=== PATIENT | male | born 1960 | race Caucasian/White ===

== ENCOUNTER 2019-09-02 09:02 | Outpatient (CLI) | payer OTHER, SELFPAY ==
--- NOTE | 2019-09-02 09:21 | CT_ITS ---
WS: [id number] CTA THORACIC AORTA WITH AND WITHOUT CONTRAST HISTORY: THORACIC AORTIC ANEURYSM TECHNIQUE: CT imaging of the thorax is performed with and without contrast. After noncontrast imaging is performed, CT angiogram is performed during injection of Omnipaque 350; 95 mL IV.. Sagittal and c oronal reconstructions, sagittal and coronal MIP imaging is submitted. All CT scans at [facility] use at least one of these dose optimization techniques: automated exposure control; mA and/o r kV adjustment per patient size (includes targeted exams where dose is matched to clinical indicatio n); or iterative reconstruction. DLP: 1426.15 mGy-cm. COMPARISON: 04/06/2018 Very slight dilatation of the descending thoracic aorta at the level of the regina. Maximum diameter 3.9 cm. No increase in size or progression since the prior study. Ascending aorta diameter is 3.9 cm. No significant atherosclerosis. There is no dissection. Normal size pulmonary artery. Great vessels arise normally from the arch. There are a few scattered granulomata throughout the lungs. No suspicious mass or nodule. Mild depend ent changes posteriorly. No pneumonia. Mildly prominent RIGHT hilar lymph node 11 mm. Overall the lym ph node burden has decreased since 04/06/2018. Mild enlargement of the cardiac chambers without pericar dial effusion. No hiatal hernia. Cholelithiasis without acute cholecystitis. No osteoblastic or osteolytic bone disease. CT/CT angio chest [id number] IMPRESSION: 1. Minimal dilatation of the descending thoracic aorta measures 3.9 cm and sta ble since 04/06/2018. 2. Improvement in the mediastinal/hilar adenopathy since 04/06/2018. 3. Cholelithiasis without acute cholecystitis.
[2019-09-02] MEDS: iohexol 350 mg/mL 100 mL Btl IV (10:31)
== END 2019-09-02 09:03 | disposition home or self-care (01) ==
LOC: RADWPI 09:14
PROVIDERS: Family Provider Family Medicine; PCP Family Medicine; Referring Provider Family Medicine; Visit Provider Surgery
DX: I71.2 Thoracic aortic aneurysm, without rupture (principal); K80.20 Calculus of gallbladder without cholecystitis without obstruction
CPT/HCPCS: 71275; Q9967

== ENCOUNTER → 2021-12-06 11:53 | Outpatient (BNVA) | payer MEDICARE, SELFPAY | PROVIDERS: Family Provider Family Medicine; PCP Family Medicine; Visit Provider Family Medicine | DX: K21.9 Gastro-esophageal reflux disease without esophagitis (principal); F41.1 Generalized anxiety disorder; F41.0 Panic disorder [episodic paroxysmal anxiety]; I10 Essential (primary) hypertension; R06.00 Dyspnea, unspecified; I71.2 Thoracic aortic aneurysm, without rupture; I49.9 Cardiac arrhythmia, unspecified; Z12.5 Encounter for screening for malignant neoplasm of prostate | CPT/HCPCS: 80053; 80061; 84153; 85025; 86140 ==

== ENCOUNTER → 2021-12-10 12:51 | Outpatient (BNVA) | payer MEDICARE, SELFPAY | PROVIDERS: Family Provider Family Medicine; PCP Family Medicine; Visit Provider Nurse Practitioner Family | DX: I10 Essential (primary) hypertension (principal); I71.2 Thoracic aortic aneurysm, without rupture | CPT/HCPCS: 99214 ==

== ENCOUNTER 2021-12-19 14:53 | Outpatient (CLI) | payer MEDICARE, SELFPAY ==
--- NOTE | 2021-12-19 15:00 | USCV_ITS ---
Oswaldo Medina Age: 61 Gender: M : 1960 Exam Date: 12/19/2021 15:08 Ordering Phys: Debo Dunham Technologist: CONNIE Exam Location: [facility] [place] Indication: Dyspnea on exertion BP: / HR: 62 Rhythm: Sinus Technical Quality: Adequate MEASUREMENTS (Male / Female) Normal Values 2D ECHO LV Diastolic Diameter PLAX 3.7 cm 4.2 - 5.9 / 3.9 - 5.3 cm LV Systolic Diameter PLAX 2.4 cm IVS Diastolic Thickness 1.1 cm 0.6 - 1.0 / 0.6 - 0.9 cm IVS Systolic Thickness 1.2 cm LVPW Diastolic Thickness 1.1 cm 0.6 - 1.0 / 0.6 - 0.9 cm LVPW Systolic Thickness 1.5 cm LVOT Diameter 2.1 cm LV Ejection Fraction 2D Teich 65.6 % LV Ejection Fraction MOD 2C 70.1 % LV Ejection Fraction 2C AL 70.0 % LA Diameter 2.9 cm LA Width 2.8 cm LA Height 3.1 cm RA Width 4.2 cm RA Height 4.6 cm Aorta at Sinotubular Diameter 3.3 cm M-MODE Aortic Annulus Diameter 3.0 cm LA Ao Ratio MM 1.1 MV E Point Septal Separation 0.2 cm DOPPLER AV Peak Velocity 110.0 cm/s LVOT Peak Velocity 100.0 cm/s AV Area Cont Eq vti 3.2 cm squared AV Area Cont Eq pk 3.3 cm squared MV Peak Velocity 88.0 cm/s MV Area PHT 2.7 cm squared Mitral E to A Ratio 0.9 MV E' Velocity 41.5 cm/s Mitral E to LV E' Lateral Ratio 6.4 TR Peak Velocity 235.5 cm/s TR Peak Gradient 22.2 mmHg PV Peak Velocity 108.0 cm/s RV Acceleration Time 0.1 s RV Ejection Time 0.3 s RV AcT/ET 0.2 FINDINGS Left Ventricle Normal left ventricular size, systolic function and wall thickness, with no regional wall motion abnormalities. Left ventricular ejection fraction is estimated at 70 %. Normal diastolic function. Right Ventricle Normal right ventricular size and systolic function. Right ventricular systolic pressure 22 mmHg. Right Atrium Normal right atrial size. Left Atrium Normal left atrial size. Mitral Valve Structurally normal mitral valve. Trace mitral valve regurgitation. Aortic Valve Structurally normal trileaflet aortic valve. No aortic valve stenosis. No aortic valve regurgitation. Tricuspid Valve Structurally normal tricuspid valve. No tricuspid valve stenosis. Trace to mild tricuspid valve regurgitation. Pulmonic Valve Structurally normal pulmonic valve. No pulmonary valve stenosis. No pulmonary valve regurgitation. Pericardium No pericardial effusion. Aorta Normal-sized aortic root. Ascending aorta measured anteroposteriorly at 37 mm. Normal-sized inferior vena cava. CONCLUSIONS 1. Normal left ventricular size, systolic function and wall thickness, with no regional wall motion abnormalities. Left ventricular ejection fraction is estimated at 70 %. Normal diastolic function. 2. Normal right ventricular size and systolic function. 3. Normal pulmonary artery pressure. 4. Trace to mild tricuspid valve regurgitation. 5. When compared to previous study dated 06/05/2018, tricuspid valve regurgitation seems to have decreased. Chasity Hanson MD (Electronically Signed) Final Date: 21 December 2021 14:03 S
== END 2021-12-19 14:54 | disposition home or self-care (01) ==
LOC: RAD 14:58
PROVIDERS: Family Provider Family Medicine; PCP Family Medicine; Visit Provider Nurse Practitioner Family
DX: R06.09 Other forms of dyspnea (principal); I07.1 Rheumatic tricuspid insufficiency
CPT/HCPCS: 93306

== ENCOUNTER → 2022-02-26 11:16 | Outpatient (BNVA) | payer MEDICARE, SELFPAY | PROVIDERS: Family Provider Family Medicine; PCP Family Medicine; Visit Provider Family Medicine | DX: R53.1 Weakness (principal); R53.82 Chronic fatigue, unspecified; R68.89 Other general symptoms and signs; W57.XXXA Bitten or stung by nonvenomous insect and other nonvenomous arthropods, initial encounter | CPT/HCPCS: 84439; 84443; 85651; 86038; 86140; 86431; 86618; 86666; 86757 ==

== ENCOUNTER 2022-04-16 14:57 | Emergency (ER) | payer MEDICARE, SELFPAY ==
[2022-04-16 15:03] VITALS: BP 158/92; PULSE 63; RESP 16; TEMP 36.3; O2SAT 97; BMI 27.1
--- NOTE | 2022-04-16 15:20 | ECG_ITS ---
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 Measurements Intervals [place] Rate: 61 P: 67 [place]: 219 QRS: -17 QRSD: 94 T: 72 QT: 415 QTc: 419 Interpretive Statements SINUS RHYTHM WITH FIRST DEGREE AV BLOCK Compared to ECG 04/06/2018 19:19:00 First degree AV block now present Ventricular premature complex(es) no longer present Electronically Signed On 04-16-2022 17:51:43 CDT by Chasity Hanson M.D. [id number]
--- NOTE | 2022-04-16 15:20 | XRR_ITS ---
PROCEDURE INFORMATION: Exam: XR Chest Exam date and time: 04/16/2022 5:31 PM Age: 62 years old Clinical indication: Chest wall pain; Additional info: Chest pain TECHNIQUE: Imaging protocol: Radiologic exam of the chest. Views: 1 view. COMPARISON: CT angio chest [id number] 09/02/2019 10:44 AM FINDINGS: Lungs: Unremarkable. No consolidation. Pleural spaces: Unremarkable. No pleural effusion. No pneumothorax. Heart/Mediastinum: Unremarkable. No cardiomegaly. Bones/joints: No acute abnormality. XR/XR chest 1V portable [id number] IMPRESSION: No acute findings.
[2022-04-16 16:34] LABS: Basophils # 0.1 10^3/uL (0.0-0.1); Basophils % 0.7 %; Eosinophils # 0.1 10^3/uL (0.0-0.8); Eosinophils % 1.2 %; Hematocrit 51.2 % (42.0-52.0); Hemoglobin 16.9 g/dL (11.7-16.6); Lymphocytes # 1.2 10^3/uL (0.8-4.8); Lymphocytes % 16.9 %; Mean Corpuscular Hemoglobin 29.4 pg (28.0-34.0); Mean Corpuscular Volume 89.2 fl (80-94); Mean Platelet Volume 10.1 fL (7.4-10.4); Monocytes # 0.5 10^3/uL (0.2-0.9); Monocytes % 7.1 %; Neutrophils # 5.37 10^3/uL (1.8-7.7); Neutrophils % 73.7 %; Nucleated Red Blood Cells % 0 %; Platelet Count 182 10^3/cmm (130-400); Red Blood Count 5.74 10^6/uL (4.1-5.3); Red Cell Distribution Width 12.5 % (12.1-15.1); White Blood Count 7.3 10^3/uL (4.0-10.0)
[2022-04-16 17:00] LABS: Troponin(5th) Baseline 7 ng/L (0-15)
[2022-04-16 17:01] LABS: Alanine Aminotransferase 33 U/L (0-41); Albumin Level 4.5 g/dL (3.5-5.2); Alkaline Phosphatase 106 U/L (40-130); Anion Gap 13.7 (5-19); Aspartate Amino Transferase 20 U/L (0-40); Blood Urea Nitrogen 10 mg/dL (8-23); Calcium 9.4 mg/dL (8.5-10.5); Carbon Dioxide 29 mmol/L (22-29); Chloride 104 mmol/L (98-107); Globulin 2.5 g/dL (1.3-4.6); Glomerular Filtration Rate 61.3 mL/min (90-130); Glucose 99 mg/dL (65-115); Osmolality Calculated 293 mOsm/kg (285-295); Potassium 4.7 mmol/L (3.5-5.1); Sodium 142 mmol/L (136-145); Total Bilirubin 0.6 mg/dL (0.15-1.2)
[2022-04-16 17:10] VITALS: BP 151/83; PULSE 60; RESP 16; O2SAT 97
--- NOTE | 2022-04-16 17:10 | PC.NURSE ---
WHILE IN LOBBY PT IS IN NAD. PT IS AGITATED STATING, IF THIS IS FINE I'M JUST GONNALEAVE I'VE WAITED HERE LONG ENOUGH .
--- NOTE | 2022-04-16 17:40 | ECG_ITS ---
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 Measurements Intervals [place] Rate: 56 P: 49 [place]: 220 QRS: -32 QRSD: 87 T: 56 QT: 417 QTc: 403 Interpretive Statements SINUS BRADYCARDIA WITH FIRST DEGREE AV BLOCK LEFT AXIS DEVIATION [QRS AXIS < -30] Compared to ECG 04/16/2022 15:02:19 Left-axis deviation now present Sinus rhythm no longer present Electronically Signed On 04-16-2022 18:08:39 CDT by Chasity Hanson M.D. [id number]
--- NOTE | 2022-04-16 18:22 | W.ED.CHESTPA ---
HPI - Chest Pain General: Chief Complaint: Chest Pain Stated Complaint: chest pain, SOB Time Seen by Provider: 04/16/22 18:11 Source: patient Mode of arrival: ambulatory Limitations: no limitations History of Present Illness: 62-year-old male who states that this morning he was doing work outside started having some chest pain around noon states it was in his left arm states he had some dyspnea especially deep inspiration. He states the pain lasted roughly 45 minutes and then just resolved spontaneously states he feels back to normal he had no pain no shortness of breath denies any cough denies any fever he has no history of coronary artery disease. Associated symptoms: Reports dyspnea; Deny abdominal pain, fever(s), nausea or vomiting Review of Systems Const: Denies: fever(s), chills, body aches or change in appetite Eyes: Denies: blurry vision or eye discomfort ENMT: Denies: throat pain or dental pain Card: Reports: chest pain Resp: Reports: dyspnea GI: Denies: abdominal pain, nausea, vomiting or diarrhea : Denies: dysuria Musc: Denies: neck pain or back pain Skin/Breast: Denies: rash Neuro: Denies: headache(s) Psych: Denies: depression Ray/Lymph: Denies: easy bruising All/Imm: Denies: urticaria PFSH ED PFSH: Medical History Anxiety Atypical chest pain Chronic back pain Chronic neck pain Hypertension Osteoarthritis PUD (peptic ulcer disease) PVC (premature ventricular contraction) Supraventricular arrhythmia Thoracic aortic aneurysm Surgical History H/O neck surgery Family History Brother CAD (coronary artery disease) Cancer Sister Cancer Mother Cancer Father Cancer Grandmother Cancer Grandfather Cancer Family/Other Diabetes Stroke Parkinson disease Other Family history of premature coronary artery disease Denies family history of Clotting disorder Dementia Chronic kidney disease (CKD) Suicide Anesthesia complication Bleeding disorder Lung disease Social History Smoking and tobacco status: never smoked Alcohol intake: never History of recent travel: No Physical Exam Const: COMMON NORMALS: no acute distress, patient oriented x3 and healthy appearing HENMT: COMMON NORMALS: normocephalic and atraumatic HEAD & SCALP: normocephalic and atraumatic Eye: COMMON NORMALS: Equal, round and reactive pupils present and EOMs intact bilaterally PUPIL: Yes Equal, round and reactive pupils present Neck/C-Spine: COMMON NORMALS: full ROM and supple Chest: COMMONS NORMALS: normal inspection of the chest and normal palpation of entire chest wall Resp: COMMON NORMALS: normal respiratory effort, No retractions, No use of accessory muscles and clear to auscultation bilaterally AUSCULTATION: clear to auscultation bilaterally Cardio: COMMON NORMALS: regular rate, regular rhythm and No murmurs present (Cardio) RATE: regular rate RHYTHM: regular rhythm GI: COMMON NORMALS: Normal to inspection, nondistended, normoactive bowel sounds present, Soft to palpation, non-tender and no masses PALPATION: Yes Soft to palpation Extremity: COMMON NORMALS: normal to inspection and full ROM Neuro: COMMON NORMALS: patient oriented x3, moves all extremities and no focal motor deficits Psych: COMMON NORMALS: mental status grossly normal, Normal thought process present and cooperative THOUGHT PROCESS: Normal thought process present Skin: COMMON NORMALS: no rashes or lesions noted and no wounds GENERAL SKIN EXAM: no rashes or lesions noted Course Vital Signs: Vital signs: Vital Signs Temperature 97.4 F L 04/16/22 15:03 Pulse Rate 59 L 04/16/22 18:31 Respiratory Rate 15 04/16/22 18:31 Blood Pressure 120/97 04/16/22 18:31 Pulse Oximetry 974 H 04/16/22 18:31 Oxygen Delivery Me thod 04/16/22 18:31 MDM - Chest Pain Medical Decision Making Patient presents for chest pain has been chest pain-free for hours D-dimer troponins here are negative he has no signs of acute coronary syndrome he is stable for discharge he is to follow-up with PCP and return if worsening he understands agrees to plan. Lab Data : 04/16/22 16:22 04/16/22 16:16 Radiology Impressions Chest X-Ray 04/16/22 15:20 IMPRESSION: No acute findings. Laboratory Results WBC 7.3 10^3/uL (4.0-10.0) 04/16/22 16:22 RBC 5.74 10^6/uL (4.1-5.3) H 04/16/22 16: Hgb 16.9 g/dL (11.7-16.6) H 04/16/22 16: Hct 51.2 % (42.0-52.0) 04/16/22 16: MCV 89.2 fl (80-94) 04/16/22 16: MCH 29.4 pg (28.0-34.0) 04/16/22: MCHC 33.0 g/dL (30.0-36.0) 04/16/22: RDW 12.5 % (12.1-15.1) 04/16/22: Plt Count 182 10^3/cmm (130-400) 04/16/22: MPV 10.1 fL (7.4-10.4) 04/16/22: Neut % (Auto) 73.7 % 04/16/22: Lymph % (Auto) 16.9 % 04/16/22: Cameron % (Auto) 7.1 % 04/16/22: Eos % (Auto) 1.2 % 04/16/22: Baso % (Auto) 0.7 % 04/16/22: Neut # (Auto) 5.37 10^3/uL (1.8-7.7) 04/16/22: Lymph # (Auto) 1.2 10^3/uL (0.8-4.8) 04/16/22: Cameron # (Auto) 0.5 10^3/uL (0.2-0.9) 04/16/22: Eos # (Auto) 0.1 10^3/uL (0.0-0.8) 04/16/22: Baso # (Auto) 0.1 10^3/uL (0.0-0.1) 04/16/22: Nucleated RBC % (auto) 0 % 04/16/22: Nucleated RBCs # 0.0 /100WBC 04/16/22 16: D-Dimer 0.60 ug/mIFEU (0-0.59) H 04/16/22 16:22 Sodium 142 mmol/L (136-145) 04/16/22 16:16 Potassium 4.7 mmol/L (3.5-5.1) 04/16/22 16:16 Chloride 104 mmol/L (98-107) 04/16/22 16:16 Carbon Dioxide 29 mmol/L (22-29) 04/16/22 16:16 Anion Gap 13.7 (5-19) 04/16/22 16:16 BUN 10 mg/dL (8-23) 04/16/22 16:16 Creatinine 1.2 mg/dL (0.7-1.2) 04/16/22 16:16 GFR Calculation 61.3 mL/min (90-130) L 04/16/22 16:16 Glucose 99 mg/dL (65-115) 04/16/22 16:16 Calculated Osmolality 293 mOsm/kg (285-295) 04/16/22 16:16 Calcium 9.4 mg/dL (8.5-10.5) 04/16/22 16:16 Total Bilirubin 0.6 mg/dL (0.15-1.2) 04/16/22 16:16 AST 20 U/L (0-40) 04/16/22 16:16 ALT 33 U/L (0-41) 04/16/22 16:16 Alkaline Phosphatase 106 U/L (40-130) 04/16/22 16:16 Troponin T Baseline 7 ng/L (0-15) 04/16/22 16:16 Troponin T 120 Minute 7.23 ng/L (0-15) 04/16/22 19:00 Total Protein 7.0 g/dL (6.6-8.7) 04/16/22 16:16 Albumin 4.5 g/dL (3.5-5.2) 04/16/22 16:16 Globulin 2.5 g/dL (1.3-4.6) 04/16/22 16:16 Discharge Plan Discharge Patient Disposition: Home Clinical Impression: Chest pain Condition: Stable Prescriptions: No Action triamcinolone acetonide 0.1 % ointment 1 applic topical TID Excedrin Migraine 250-250-65 mg tablet 1 tab PO Q6H PRN alprazolam 1 mg tablet 1 mg PO BID PRN (Reason: anxiety, insomnia) Qty: 60 2RF amlodipine 2.5 mg tablet 2.5 mg PO DAILY 90 Days Qty: 90 1RF metoprolol succinate 50 mg tablet extended release 24 hr 50 mg PO DAILY 90 Days Qty: 90 1RF omeprazole 20 mg capsule,delayed release(DR/EC) 20 mg PO DAILY 90 Days Qty: 90 1RF Discharge Orders: Discharge ED (Routine); Ordered 04/16/22 Ordered By: Dilshad Huizar Referrals: Everardo Guaman, [Primary Care Provider] - 1-3 days Discharge Diet: Advance as tolerated Discharge Activity: Resume usual activity Patient Instructions: Chest Pain (ED) Coding Level of Care Code ED Electrophysiology Nurse Practitioner for Abenag Fwd Exam Comprehensive
[2022-04-16 18:31] VITALS: BP 120/97; PULSE 59; RESP 15; O2SAT 974
[2022-04-16 19:54] LABS: Troponin 5 2HR 7.23 ng/L (0-15)
[2022-04-16 20:10] VITALS: BP 130/89; PULSE 61; RESP 18; O2SAT 96
[2022-04-16 21:08] LABS: Troponin 5 2HR Delta 0.23 ABS# (0-10)
== END 2022-04-16 20:11 | disposition home or self-care (01) ==
PROVIDERS: Physician Assistant; Emergency Provider Emergency Medicine; PCP Family Medicine
DX: R07.9 Chest pain, unspecified (principal); I10 Essential (primary) hypertension
CPT/HCPCS: 71045; 80053; 84484; 85025; 85378; 93005; 99285

== ENCOUNTER 2022-04-27 18:04 | Emergency (ER) | payer MEDICARE, SELFPAY ==
[2022-04-27 18:08] VITALS: BMI 27.1
--- NOTE | 2022-04-27 18:16 | ECG_ITS ---
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 Measurements Intervals [place] Rate: 68 P: -5 [place]: 223 QRS: 105 QRSD: 98 T: -6 QT: 387 QTc: 412 Interpretive Statements SINUS RHYTHM WITH FIRST DEGREE AV BLOCK RIGHT AXIS DEVIATION [QRS AXIS > 100] POSSIBLE RIGHT VENTRICULAR CONDUCTION DELAY [RSR (QR) IN V1/V2] ST ELEVATION, PROBABLY EARLY REPOLARIZATION [ST ELEVATION WITH NORMALLY INFLECTED T-WAVE] ABNORMAL QRS-T ANGLE [QRS-T AXIS DIFFERENCE > 60] INTERPRETATION BASED ON A DEFAULT AGE OF 40 YEARS Compared to ECG 04/16/2022 17:40:05 Right-axis deviation now present ST (T wave) deviation now present Sinus bradycardia no longer present Left-axis deviation no longer present Electronically Signed On 04-28-2022 8:22:57 CDT by Grey Love M.D. [id number] alda
--- NOTE | 2022-04-27 18:49 | W.ED.ARRPALP ---
HPI - Arrhythmia/Palpitations General: Chief Complaint: Arrhythmia/Palpitations Stated Complaint: back pain, Chest pains Time Seen by Provider: 04/27/22 18:20 Source: patient and family History of Present Illness: 63-year-old gentleman sent from urgent care. His main complaints are muscle spasms on the left side of his lower chest. He notes a quivering sensation this has been going on for 24 hours or so. He notes that they have happened in the past, and usually he can get them to go away by drinking water and moving around some. I believe there was some concern in urgent care, as the patient has a history of a thoracic aortic aneurysm. He does not complain of chest pain or significant shortness of breath. He does states that he is nauseated, and has been nauseated on and off since he had [place] spotted fever around 6 weeks ago MD complaint: palpitations Onset (ago): hour(s) Duration: constant Severity: mild Context: occurred during rest Arrhythmia history: other Associated symptoms: Reports nausea; Deny anxiety, cough, diaphoresis, muscle cramps, short of breath, syncope or vomiting Review of Systems Const: Denies: diaphoresis Eyes: Denies: change in vision ENMT: Denies: throat pain Card: Reports: palpitations; Denies: chest pain, irregular heart rhythm or syncope Resp: Denies: dyspnea, productive cough or non-productive cough GI: Reports: nausea; Denies: abdominal pain or vomiting Musc: Denies: muscle cramps Psych: Denies: anxiety PFSH ED PFSH: Medical History Anxiety Atypical chest pain Chronic back pain Chronic neck pain Hypertension Osteoarthritis PUD (peptic ulcer disease) PVC (premature ventricular contraction) Supraventricular arrhythmia Thoracic aortic aneurysm Surgical History H/O neck surgery Family History Brother CAD (coronary artery disease) Cancer Sister Cancer Mother Cancer Father Cancer Grandmother Cancer Grandfather Cancer Family/Other Diabetes Stroke Parkinson disease Other Family history of premature coronary artery disease Denies family history of Clotting disorder Dementia Chronic kidney disease (CKD) Suicide Anesthesia complication Bleeding disorder Lung disease Social History (Reviewed 04/27/22 @ 18:58 by MONSE Paiz Smoking and tobacco status: never smoked Alcohol intake: never History of recent travel: No Physical Exam Const: COMMON NORMALS: no acute distress GENERAL APPEARANCE: cooperative HENMT: COMMON NORMALS: normocephalic and atraumatic HEAD & SCALP: normocephalic and atraumatic Eye: COMMON NORMALS: Equal, round and reactive pupils present and EOMs intact bilaterally PUPIL: Yes Equal, round and reactive pupils present Neck/C-Spine: COMMON NORMALS: full ROM GENERAL: Yes trachea midline Chest: CHEST: Yes Symmetrical chest wall rise Resp: COMMON NORMALS: normal respiratory effort, No use of accessory muscles and clear to auscultation bilaterally AUSCULTATION: clear to auscultation bilaterally Cardio: COMMON NORMALS: regular rate and regular rhythm RATE: regular rate RHYTHM: regular rhythm GI: COMMON NORMALS: Normal to inspection, nondistended, normoactive bowel sounds present and Soft to palpation PALPATION: Yes Soft to palpation and Yes Tenderness to palpation present (GI) (Mild epigastric) Extremity: COMMON NORMALS: no pedal edema Course Vital Signs: Vital signs: Vital Signs Pulse Rate 71 04/27/22 21:55 Respiratory Rate 12 04/27/22 21:55 Blood Pressure 127/80 04/27/22 21:55 Pulse Oximetry 92 04/27/22 21:55 MDM - Arrhythmia/Palpitations Medical Decision Making 62-year-old male presenting with twitching in his abdomen/chest. His vital signs been normal. Pulse ox is 94% on room air. Heart rate is 62 blood pressure 127/80. He was feeling rather anxious. Midazolam helped both the twitching and the anxiety, as well as did IV fluid. His hemoglobin is 17.8. He has had high hemoglobins in the past. White blood cell count is 7. Chest x-ray is negative. EKG shows sinus rhythm with left axis and normal intervals. His rate is 60. He has an early repull pattern on EKG. First troponin is 12. 2-hour is 8.6. With improvement in his symptoms. He will be allowed home. Lab Data : 04/27/22 18:50 04/27/22 18:50 Radiology Impressions Chest X-Ray 04/27/22 18:53 IMPRESSION: No acute findings. Laboratory Results WBC 7.1 10^3/uL (4.0-10.0) 04/27/22 18:50 RBC 5.98 10^6/uL (4.1-5.3) H 04/27/22 18:50 Hgb 17.8 g/dL (11.7-16.6) H 04/27/22 18:50 Hct 52.9 % (42.0-52.0) H 04/27/22 18:50 MCV 88.5 fl (80-94) 04/27/22 18:50 MCH 29.8 pg (28.0-34.0) 04/27/22 18:50 MCHC 33.6 g/dL (30.0-36.0) 04/27/22 18:50 RDW 12.3 % (12.1-15.1) 04/27/22 18:50 Plt Count 210 10^3/cmm (130-400) 04/27/22 18:50 MPV 10.1 fL (7.4-10.4) 04/27/22 18:50 Neut % (Auto) 71.2 % 04/27/22 18:50 Lymph % (Auto) 18.7 % 04/27/22 18:50 [place] % (Auto) 8.7 % 04/27/22 18:50 Eos % (Auto) 0.7 % 04/27/22 18:50 Baso % (Auto) 0.4 % 04/27/22 18:50 Neut # (Auto) 5.05 10^3/uL (1.8-7.7) 04/27/22 18:50 Lymph # (Auto) 1.3 10^3/uL (0.8-4.8) 04/27/22 18:50 [place]cd[place] # (Auto) 0.6 10^3/uL (0.2-0.9) 04/27/22 18:50 Eos # (Auto) 0.1 10^3/uL (0.0-0.8) 04/27/22 18:50 Baso # (Auto) 0.0 10^3/uL (0.0-0.1) 04/27/22 18:50 Nucleated RBC % (auto) 0 % 04/27/22 18:50 Nucleated RBCs # 0.0 /100WBC 04/27/22 18:50 Sodium 140 mmol/L (136-145) 04/27/22 18:50 Potassium 4.5 mmol/L (3.5-5.1) 04/27/22 18:50 Chloride 101 mmol/L (98-107) 04/27/22 18:50 Carbon Dioxide 27 mmol/L (22-29) 04/27/22 18:50 Anion Gap 16.5 (5-19) 04/27/22 18:50 BUN 15 mg/dL (8-23) 04/27/22 18:50 Creatinine 1.1 mg/dL (0.7-1.2) 04/27/22 18:50 GFR Calculation 67.8 mL/min (90-130) L 04/27/22 18:50 Glucose 90 mg/dL (65-115) 04/27/22 18:50 Calculated Osmolality 290 mOsm/kg (285-295) 04/27/22 18:50 Calcium 9.4 mg/dL (8.5-10.5) 04/27/22 18:50 Magnesium 2.3 mg/dL (1.7-2.3) 04/27/22 18:50 Total Bilirubin 0.8 mg/dL (0.15-1.2) 04/27/22 18:50 AST 20 U/L (0-40) 04/27/22 18:50 ALT 37 U/L (0-41) 04/27/22 18:50 Alkaline Phosphatase 116 U/L (40-130) 04/27/22 18:50 Creatine Kinase 71 U/L (39-308) 04/27/22 18:50 Troponin T Baseline 12 ng/L (0-15) 04/27/22 18:50 Troponin T 120 Minute 8.58 ng/L (0-15) 04/27/22 20:54 Delta Troponin T -3.42 ABS# (0-10) L 04/27/22 20:54 Total Protein 7.0 g/dL (6.6-8.7) 04/27/22 18:50 Albumin 4.7 g/dL (3.5-5.2) 04/27/22 18:50 Globulin 2.3 g/dL (1.3-4.6) 04/27/22 18:50 Urine Color Yellow (Yellow) 04/27/22 19:41 Urine Appearance Clear (CLEAR) 04/27/22 19:41 Urine pH 6 (5-7) 04/27/22 19:41 Ur Specific [place] 1.010 (1.005-1.030) 04/27/22 19:41 Urine Protein Neg (Negative) 04/27/22 19:41 Urine Glucose (UA) Norm (Normal) 04/27/22 19:41 Urine Ketones Negative (Negative) 04/27/22 19:41 Urine Blood Neg (Negative) 04/27/22 19:41 Urine Nitrate Negative (Negative) 04/27/22 19:41 Urine Bilirubin Neg (Negative) 04/27/22 19:41 Urine Urobilinogen Norm mg/dL (Negative) 04/27/22 19:41 Ur Leukocyte Esterase Negative (Negative) 04/27/22 19:41 Discharge Plan Discharge Patient Disposition: Home Clinical Impression: Atypical chest pain, Generalized anxiety disorder with panic attacks Condition: Stable Prescriptions: No Action triamcinolone acetonide 0.1 % ointment 1 applic topical TID Excedrin Migraine 250-250-65 mg tablet 1 tab PO Q6H PRN alprazolam 1 mg tablet 1 mg PO BID PRN (Reason: anxiety, insomnia) Qty: 60 2RF amlodipine 2.5 mg tablet 2.5 mg PO DAILY 90 Days Qty: 90 1RF metoprolol succinate 50 mg tablet extended release 24 hr 50 mg PO DAILY 90 Days Qty: 90 1RF omeprazole 20 mg capsule,delayed release(DR/EC) 20 mg PO DAILY 90 Days Qty: 90 1RF Discharge Orders: Discharge ED (Routine); Ordered 04/27/22 Ordered By: Lance Alonzo Referrals: Everardo Guaman DO [Primary Care Provider] - 1-3 days Activity Restrictions/Additional Instructions: Return for fever, vomiting, chest discomfort, shortness of breath, any other concerning symptoms. Coding Level of Care Code ED Transport Analyst for Chg Fwd Exam Comprehensive
--- NOTE | 2022-04-27 18:53 | XRR_ITS ---
PROCEDURE INFORMATION: Exam: XR Chest Exam date and time: 04/27/2022 7:11 PM Age: 62 years old Clinical indication: Shortness of breath; Additional info: Palpitations TECHNIQUE: Imaging protocol: Radiologic exam of the chest. Views: 1 view. COMPARISON: CR (CHEST, ) 04/16/2022 5:31 PM FINDINGS: Lungs: Unremarkable. No consolidation. Pleural spaces: Unremarkable. No pleural effusion. No pneumothorax. Heart/Mediastinum: Unremarkable. No cardiomegaly. Bones/joints: C-spine fusion hardware. XR/XR chest 1V portable [id number] IMPRESSION: No acute findings.
[2022-04-27 19:00] LABS: Basophils % 0.4 %; Eosinophils # 0.1 10^3/uL (0.0-0.8); Eosinophils % 0.7 %; Hematocrit 52.9 % (42.0-52.0); Hemoglobin 17.8 g/dL (11.7-16.6); Lymphocytes # 1.3 10^3/uL (0.8-4.8); Lymphocytes % 18.7 %; Mean Corpuscular HGB Conc 33.6 g/dL (30.0-36.0); Mean Corpuscular Hemoglobin 29.8 pg (28.0-34.0); Mean Corpuscular Volume 88.5 fl (80-94); Mean Platelet Volume 10.1 fL (7.4-10.4); Monocytes # 0.6 10^3/uL (0.2-0.9); Monocytes % 8.7 %; Neutrophils # 5.05 10^3/uL (1.8-7.7); Neutrophils % 71.2 %; Nucleated Red Blood Cells % 0 %; Platelet Count 210 10^3/cmm (130-400); Red Blood Count 5.98 10^6/uL (4.1-5.3); Red Cell Distribution Width 12.3 % (12.1-15.1); White Blood Count 7.1 10^3/uL (4.0-10.0)
[2022-04-27] MEDS: sodium chloride 0.9% 1,000 ML 999 ML IV (19:05)
[2022-04-27 19:26] LABS: Troponin(5th) Baseline 12 ng/L (0-15)
[2022-04-27 19:28] LABS: Alanine Aminotransferase 37 U/L (0-41); Albumin Level 4.7 g/dL (3.5-5.2); Alkaline Phosphatase 116 U/L (40-130); Anion Gap 16.5 (5-19); Aspartate Amino Transferase 20 U/L (0-40); Blood Urea Nitrogen 15 mg/dL (8-23); Calcium 9.4 mg/dL (8.5-10.5); Carbon Dioxide 27 mmol/L (22-29); Chloride 101 mmol/L (98-107); Creatine Phosphokinase 71 U/L (39-308); Globulin 2.3 g/dL (1.3-4.6); Glomerular Filtration Rate 67.8 mL/min (90-130); Glucose 90 mg/dL (65-115); Magnesium 2.3 mg/dL (1.7-2.3); Osmolality Calculated 290 mOsm/kg (285-295); Potassium 4.5 mmol/L (3.5-5.1); Sodium 140 mmol/L (136-145); Total Bilirubin 0.8 mg/dL (0.15-1.2)
[2022-04-27 19:54] LABS: Add Urine Microscopic? NO; Charge for UA Resulting for Rev
[2022-04-27 20:17] VITALS: BP 143/88; PULSE 66; RESP 14; O2SAT 93
[2022-04-27 20:55] LABS: Bilirubin Urine Neg (Negative); Blood Urine Neg (Negative); Glucose Urine UA Norm (Normal); Ketones Urine Negative (Negative); Leukocyte Esterase Urine Negative (Negative); Nitrate Urine Negative (Negative); Protein Urine Neg (Negative); Urine Appearance Clear (CLEAR); Urine Color Yellow (Yellow); Urobilinogen Urine Norm (Negative); pH Urine 6 (5-7)
--- NOTE | 2022-04-27 21:06 | ECG_ITS ---
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 Measurements Intervals [place] Rate: 61 P: 51 SD: 239 QRS: -38 QRSD: 91 T: 59 QT: 421 QTc: 425 Interpretive Statements SINUS RHYTHM WITH FIRST DEGREE AV BLOCK LEFT AXIS DEVIATION [QRS AXIS < -30] POSSIBLE RIGHT VENTRICULAR CONDUCTION DELAY [RSR (QR) IN V1/V2] Compared to ECG 04/16/2022 17:40:05 Sinus bradycardia no longer present Electronically Signed On 04-28-2022 8:27:27 CDT by Grey Love M.D. [email or web address]/store/[id number]
[2022-04-27] MEDS: midazolam 1 mg/mL INJ 2 mL IVP (21:08)
[2022-04-27 21:30] VITALS: BP 127/80; PULSE 71; RESP 12; O2SAT 92
[2022-04-27 21:32] LABS: Troponin 5 2HR 8.58 ng/L (0-15)
[2022-04-27 21:42] LABS: Troponin 5 2HR Delta -3.42 ABS# (0-10)
[2022-04-27 21:55] VITALS: BP 127/80; PULSE 71; RESP 12; O2SAT 92
== END 2022-04-27 21:48 | disposition home or self-care (01) ==
PROVIDERS: Emergency Provider Emergency Medicine; PCP Family Medicine
DX: R07.89 Other chest pain (principal); F41.1 Generalized anxiety disorder; F41.0 Panic disorder [episodic paroxysmal anxiety]; I10 Essential (primary) hypertension
CPT/HCPCS: 71045; 80053; 81000; 81003; 82550; 83735; 84484; 85025; 93005; 96361; 96374; 99285; J2250; J7030

== ENCOUNTER → 2022-04-30 10:52 | Outpatient (BNVA) | payer MEDICARE, SELFPAY | PROVIDERS: PCP Family Medicine; Visit Provider Internal Medicine Cardiovascular Disease | DX: I71.2 Thoracic aortic aneurysm, without rupture (principal); S30.861A Insect bite (nonvenomous) of abdominal wall, initial encounter; W57.XXXA Bitten or stung by nonvenomous insect and other nonvenomous arthropods, initial encounter; R53.82 Chronic fatigue, unspecified; F17.228 Nicotine dependence, chewing tobacco, with other nicotine-induced disorders; R07.89 Other chest pain; I10 Essential (primary) hypertension | CPT/HCPCS: 99213 ==

== ENCOUNTER 2022-06-07 12:50 | Outpatient (CLI) | payer MEDICARE, SELFPAY ==
[2022-06-07] MEDS: iohexol 350 mg/mL 100 mL Btl IV (13:27)
--- NOTE | 2022-06-07 13:30 | CT_ITS ---
WS: [id number] CTA THORACIC TECHNIQUE: Contrast enhanced CTA of the thoracic aorta with coronal and sagittal reformatted images a nd maximum intensity projection (MIP) images. CLINICAL INFORMATION: dao known aneurysm COMPARISON: CTA September 02, 2019 DLP: 1391.[address] scans at [facility] use at least one of these dose optimization techniques: automated e xposure control; mA and/or kV adjustment per patient size (includes targeted exams where dose is matc hed to clinical indication); or iterative reconstruction. FINDINGS: Both lungs are well aerated. No acute pulmonary infiltrates. No focal pneumonia or pleural fluid. Ane urysmal ascending thoracic aorta with maximum dimension measuring 3.9 cm and aneurysmal proximal desc ending thoracic aorta also measuring 3.9 cm unchanged. Proximal main pulmonary arteries are normal. A few prominent mediastinal and peribronchial lymph node s likely reactive unchanged. No axillary lymphadenopathy. Lower pole RIGHT thyroid nodule measuring 6 mm. Adrenal glands are normal. Normal spleen. Normal GE junction. Upper abdominal aorta is normal. Celiac and SMA are patent. Cholelithiasis. CT/CT angio chest 54987 IMPRESSION: 1. Aneurysmal ascending and proximal descending thoracic aorta measuring 3.9 c m unchanged from previous. 2. Proximal main pulmonary arteries are normal. 3. Prominent mediastinal and peribronchial lymph nodes likely reactive unchang ed. 4. Both lungs are well aerated. No acute pulmonary infiltrates. 5. Cholelithiasis.
== END 2022-06-07 12:51 | disposition home or self-care (01) ==
PROVIDERS: PCP Family Medicine; Visit Provider Internal Medicine Cardiovascular Disease
DX: I71.20 Thoracic aortic aneurysm, without rupture, unspecified (principal); K80.20 Calculus of gallbladder without cholecystitis without obstruction
CPT/HCPCS: 71275

== ENCOUNTER 2022-06-24 06:09 | Emergency (ER) | payer MEDICARE, SELFPAY ==
[2022-06-24] VITALS (13 sets, daily range): BP systolic 114–159; BP diastolic 75–87; PULSE 56–77; RESP 12–22; TEMP 36.6; O2SAT 91–97
--- NOTE | 2022-06-24 06:24 | ECG_ITS ---
[facility] Test Date: 2022-06-24 Pat Name: Oswaldo Medina Department: Room: Gender: Male Medicaid Biller: : 1960 Requested By: Chencho Pineda Order Number: [id number] Rhonda MD: Chasity Hanson M.D. Measurements Intervals [place] Rate: 64 P: LA: QRS: -42 QRSD: 96 T: 66 QT: 367 QTc: 379 Interpretive Statements SINUS RHYTHM ARTIFACT LEFT AXIS DEVIATION [QRS AXIS < -30] POSSIBLE RIGHT VENTRICULAR CONDUCTION DELAY [RSR (QR) IN V1/V2] Compared to ECG 04/27/2022 21:06:41 First degree AV block no longer present Electronically Signed On 06-24-2022 22:55:54 CDT by Chasity Hanson M.D. [email or web address]/store/[id number]
--- NOTE | 2022-06-24 06:33 | W.ED.GENADLT ---
HPI - General Adult General: Chief complaint: General Medical Stated complaint: right side ribs hurt Time Seen by Provider: 06/24/22 06:15 Source: patient Mode of arrival: ambulatory History of Present Illness: 62-year-old male presents emergency room plaint of right side pain. Localizes to his ribs however he has no traumatic or triggering event. Radiates down to the groin. He is extremely uncomfortable continuous chest intrathymic comfortable position. He denies fever sweats or chills denies hematic Brii. No dysuria urgency or frequency no shortness of breath or cough. Onset (ago): hour(s) Location: left (Flank) Radiation: other (Left groin) Severity: severe Quality: sharp Pain Consistency: constant Relieving factors: none Exacerbating factors: none Associated symptoms: Reports nausea and vomiting; Deny chest pain, confusion, cough, diaphoresis, decreased appetite, dyspnea, fevers/chills, headache(s), malaise, rash, palpitations, seizures, short of breath, syncope or weakness Treatments prior to arrival: none Review of Systems Const: Denies: fever(s), chills, fatigue, malaise or diaphoresis ENMT: Denies: throat pain, ear or mastoid pain, nasal discharge or nasal congestion Card: Denies: chest pain, palpitations or syncope Resp: Denies: dyspnea GI: Reports: abdominal pain, nausea and vomiting : Denies: flank pain, difficulty urinating, dysuria, urinary frequency, urinary urgency or hematuria Musc: Reports: back pain Skin/Breast: Denies: rash or pruritus Neuro: Denies: headache(s) or confusion PFSH ED PFSH: Medical History (Updated 07/02/22 @ 00:01 by ) Anxiety Atypical chest pain Bilateral inguinal hernia Chronic back pain Chronic neck pain Hypertension Osteoarthritis PUD (peptic ulcer disease) PVC (premature ventricular contraction) Supraventricular arrhythmia Thoracic aortic aneurysm Surgical History H/O neck surgery Family History Brother CAD (coronary artery disease) Cancer Sister Cancer Mother Cancer Father Cancer Grandmother Cancer Grandfather Cancer Family/Other Diabetes Stroke Parkinson disease Other Family history of premature coronary artery disease Denies family history of Clotting disorder Dementia Chronic kidney disease (CKD) Suicide Anesthesia complication Bleeding disorder Lung disease Social History Smoking and tobacco status: never smoked Alcohol intake: never History of recent travel: No Physical Exam Const: GENERAL APPEARANCE: cooperative and comfortable ORIENTATION/CONSCIOUSNESS: Yes awake, Yes oriented to person, Yes oriented to place and Yes oriented to time HENMT: COMMON NORMALS: normocephalic, atraumatic and hearing grossly normal bilaterally HEAD & SCALP: normocephalic and atraumatic Resp: COMMON NORMALS: normal respiratory effort, No retractions, No use of accessory muscles and clear to auscultation bilaterally AUSCULTATION: clear to auscultation bilaterally Cardio: COMMON NORMALS: regular rate, regular rhythm and No murmurs present (Cardio) RATE: regular rate RHYTHM: regular rhythm GI: COMMON NORMALS: Soft to palpation and No hepatosplenomegaly present AUSCULTATION: Yes normoactive bowel sounds PALPATION: Yes Soft to palpation, No Tenderness to palpation present (GI), No Guarding due to palpation present (GI) and Yes No hepatosplenomegaly present : COMMON NORMALS: Yes no CVA tenderness BLADDER/KIDNEY EXAM: Yes no CVA tenderness Back/Pelvis: COMMON NORMALS: no CVA tenderness Extremity: COMMON NORMALS: normal to inspection, capillary refill normal, no clubbing, cyanosis or edema, no calf tenderness and no pedal edema Neuro: SENSORIUM/ORIENTATION: Yes oriented to person, Yes oriented to place and Yes oriented to time Skin: COMMON NORMALS: no rashes or lesions noted GENERAL SKIN EXAM: no rashes or lesions noted Course Vital Signs: Vital signs: Vital Signs Temperature 97.9 F 06/24/22 06:10 Pulse Rate 63 06/24/22 11:00 Respiratory Rate 12 06/24/22 11:00 Blood Pressure 117/75 06/24/22 11:00 Pulse Oximetry 97 06/24/22 11:00 Oxygen Delivery Me thod 06/24/22 08:08 [facility] - General Adult Medical Decision Making Cholelithiasis without acute cholecystitis liver functions are normal pain is improved. Urine is negative. CT did not show any nephrolithiasis. Suspect this is from biliary colic he ate a heavy fatty meal last night which seems to have precipitated it. We will discharge him home promethazine discussed dietary changes to avoid recurrence. We will set him up with general surgery to further evaluate for Ronn biliary colic to see if he is a candidate for cholecystectomy. Medical Records I reviewed the patient's medical records. Lab Data I reviewed the patient's lab results. : 06/24/22 06:29 06/24/22 06:29 Radiology Impressions Abdomen/Pelvis CT 06/24/22 07:19 IMPRESSION: 1. No renal obstruction or calcifications. 2. Cholelithiasis without acute cholecystitis. 3. Normal appendix. 4. No ascites or adenopathy. Laboratory Results WBC 7.7 10^3/uL (4.0-10.0) 06/24/22 06:29 RBC 5.71 10^6/uL (4.1-5.3) H 06/24/22 06:29 Hgb 17.5 g/dL (11.7-16.6) H 06/24/22 06:29 Hct 50.8 % (42.0-52.0) 06/24/22 06:29 MCV 89.0 fl (80-94) 06/24/22 06:29 MCH 30.6 pg (28.0-34.0) 06/24/22 06: MCHC 34.4 g/dL (30.0-36.0) 06/24/22 06:29 RDW 12.6 % (12.1-15.1) 06/24/22 06:29 Plt Count 209 10^3/cmm (130-400) 06/24/22 06:29 MPV 10.0 fL (7.4-10.4) 06/24/22 06: Neut % (Auto) 60.8 % 06/24/22 06:29 Lymph % (Auto) 26.4 % 06/24/22 06:29 Bos[place] % (Auto) 8.8 % 06/24/22 06: Eos % (Auto) 2.8 % 06/24/22 06:29 Baso % (Auto) 0.8 % 06/24/22 06:29 Neut # (Auto) 4.69 10^3/uL (1.8-7.7) 06/24/22 06:29 Lymph # (Auto) 2.0 10^3/uL (0.8-4.8) 06/24/22 06:29 [place] # (Auto) 0.7 10^3/uL (0.2-0.9) 06/24/22 06:29 Eos # (Auto) 0.2 10^3/uL (0.0-0.8) 06/24/22 06:29 Baso # (Auto) 0.1 10^3/uL (0.0-0.1) 06/24/22 06:29 Nucleated RBC % (auto) 0 % 06/24/22 06:29 Nucleated RBCs # 0.0 /100WBC 06/24/22 06:29 Sodium 143 mmol/L (136-145) 06/24/22 06:29 Potassium 4.5 mmol/L (3.5-5.1) 06/24/22 06:29 Chloride 105 mmol/L (98-107) 06/24/22 06:29 Carbon Dioxide 27 mmol/L (22-29) 06/24/22 06:29 Anion Gap 15.5 (5-19) 06/24/22 06:29 BUN 16 mg/dL (8-23) 06/24/22 06:29 Creatinine 1.1 mg/dL (0.7-1.2) 06/24/22 06:29 GFR Calculation 67.8 mL/min (90-130) L 06/24/22 06:29 Glucose 116 mg/dL (65-115) H 06/24/22 06:29 Calculated Osmolality 298 mOsm/kg (285-295) H 06/24/22 06:29 Calcium 9.6 mg/dL (8.5-10.5) 06/24/22 06:29 Total Bilirubin 0.7 mg/dL (0.15-1.2) 06/24/22 06:29 AST 20 U/L (0-40) 06/24/22 06:29 ALT 30 U/L (0-41) 06/24/22 06:29 Alkaline Phosphatase 117 U/L (40-130) 06/24/22 06:29 Troponin T Baseline 11 ng/L (0-15) 06/24/22 06:29 Troponin T 120 Minute 7.85 ng/L (0-15) 06/24/22 08:43 Delta Troponin T -3.15 ABS# (0-10) L 06/24/22 08:43 Total Protein 6.9 g/dL (6.6-8.7) 06/24/22 06:29 Albumin 4.3 g/dL (3.5-5.2) 06/24/22 06:29 Globulin 2.6 g/dL (1.3-4.6) 06/24/22 06:29 Urine Color Yellow (Yellow) 06/24/22 09:25 Urine Appearance Clear (CLEAR) 06/24/22 09:25 Urine pH 6.5 (5-7) 06/24/22 09:25 Ur Specific [place] 1.000 (1.005-1.030) L 06/24/22 09:25 Urine Protein 1+ (Negative) H 06/24/22 09:25 Urine Glucose (UA) Norm (Normal) 06/24/22 09:25 Urine Ketones Negative (Negative) 06/24/22 09:25 Urine Blood Trace (Negative) H 06/24/22 09:25 Urine Nitrate Negative (Negative) 06/24/22 09:25 Urine Bilirubin Neg (Negative) 06/24/22 09:25 Urine Urobilinogen Norm mg/dL (Negative) 06/24/22 09:25 Ur Leukocyte Esterase Negative (Negative) 06/24/22 09:25 Urine RBC None /hpf (0-2) 06/24/22 09:25 Urine WBC 0-4 /hpf (0-5) H 06/24/22 09:25 Ur Squamous Epith Cells None /hpf (0-5) 06/24/22 09:25 Amorphous Sediment Not Reportable 06/24/22 09:25 Urine Bacteria Trace /hpf (NONE) 06/24/22 09:25 Discharge Plan Discharge Patient Disposition: Home Clinical Impression: Biliary colic Condition: Stable Prescriptions: New promethazine 25 mg tablet 25 mg PO Q6H PRN (Reason: nausea and vomiting) Qty: 20 0RF No Action triamcinolone acetonide 0.1 % ointment 1 applic topical TID PRN (Reason: Rash) Excedrin Migraine 250-250-65 mg tablet 1 tab PO Q6H PRN (Reason: Pain) Hold Instructions: Resume on 07/07/22. metoprolol succinate 50 mg tablet extended release 24 hr 50 mg PO DAILY 90 Days Qty: 90 1RF omeprazole 20 mg capsule,delayed release(DR/EC) 20 mg PO DAILY 90 Days Qty: 90 1RF amlodipine 2.5 mg tablet 2.5 mg PO DAILY 90 Days Qty: 90 1RF alprazolam 1 mg tablet 1 mg PO BID PRN (Reason: anxiety, insomnia) Qty: 60 2RF hydrocodone-acetaminophen 7.5-325 mg tablet 1 tab PO Q6H PRN (Reason: pain) Qty: 20 0RF Discharge Orders: Discharge ED (Routine); Ordered 06/24/22 Ordered By: Chencho Lester Referrals: Everardo Guaman DO [Primary Care Provider] - Discharge Diet: As Directed Discharge Activity: Increase activity as tolerated Patient Instructions: Biliary Colic (ED), Abdominal Pain (ED), Opioid Safety, Pain Management Activity Restrictions/Additional Instructions: Case management will make arrangements for you to have a referral to general surgery.. Coding Level of Care Code ED Hospital Chief Financial Officer for [facility] Fwd Exam Comprehensive
[2022-06-24] MEDS: morphine 4 mg/mL SDV 1 mL IVP ×2 (06:36→07:25)
[2022-06-24] MEDS: ondansetron 2 mg/ML SDV 2 mL 4 MG IVP (06:36)
[2022-06-24 06:40] LABS: Basophils # 0.1 10^3/uL (0.0-0.1); Basophils % 0.8 %; Eosinophils # 0.2 10^3/uL (0.0-0.8); Eosinophils % 2.8 %; Hematocrit 50.8 % (42.0-52.0); Hemoglobin 17.5 g/dL (11.7-16.6); Lymphocytes % 26.4 %; Mean Corpuscular HGB Conc 34.4 g/dL (30.0-36.0); Mean Corpuscular Hemoglobin 30.6 pg (28.0-34.0); Monocytes # 0.7 10^3/uL (0.2-0.9); Monocytes % 8.8 %; Neutrophils # 4.69 10^3/uL (1.8-7.7); Neutrophils % 60.8 %; Nucleated Red Blood Cells % 0 %; Platelet Count 209 10^3/cmm (130-400); Red Blood Count 5.71 10^6/uL (4.1-5.3); Red Cell Distribution Width 12.6 % (12.1-15.1); White Blood Count 7.7 10^3/uL (4.0-10.0)
[2022-06-24 07:02] LABS: Alanine Aminotransferase 30 U/L (0-41); Albumin Level 4.3 g/dL (3.5-5.2); Alkaline Phosphatase 117 U/L (40-130); Blood Urea Nitrogen 16 mg/dL (8-23); Calcium 9.6 mg/dL (8.5-10.5); Carbon Dioxide 27 mmol/L (22-29); Chloride 105 mmol/L (98-107); Globulin 2.6 g/dL (1.3-4.6); Glomerular Filtration Rate 67.8 mL/min (90-130); Glucose 116 mg/dL (65-115); Osmolality Calculated 298 mOsm/kg (285-295); Sodium 143 mmol/L (136-145); Total Bilirubin 0.7 mg/dL (0.15-1.2); Total Protein 6.9 g/dL (6.6-8.7)
[2022-06-24 07:04] LABS: Troponin(5th) Baseline 11 ng/L (0-15)
--- NOTE | 2022-06-24 07:15 | PC.NURSE ---
ER provider notified that patient request additional pain medication. No new orders at this time.
[2022-06-24 07:16] LABS: Anion Gap 15.5 (5-19); Aspartate Amino Transferase 20 U/L (0-40); Potassium 4.5 mmol/L (3.5-5.1)
--- NOTE | 2022-06-24 07:19 | CT_ITS ---
WS: [id number] CT ABDOMEN AND PELVIS NONCONTRAST HISTORY: flank pain, RIGHT lower quadrant pain. TECHNIQUE: Imaging performed through the abdomen and pelvis. Coronal and sagittal reformats are submi tted. All CT scans at [facility] use at least one of these dose optimization techniques: auto mated exposure control; mA and/or kV adjustment per patient size (includes targeted exams where dose is matched to clinical indication); or iterative reconstruction. DLP: 760.14 mGy.cm COMPARISON: None available. Lower thorax: Lung bases are clear. Visualized heart is normal. No hiatal hernia. Liver: Normal size liver. No mass or bile duct dilatation. Gallbladder: Well distended gallbladder with stone at the neck. No adjacent inflammation. Common bile duct is normal size. Pancreas: Pancreas is similar size and attenuation as on the prior study of 06/07/2022. The pancreatic duct is top normal size. Spleen: Normal. Adrenal glands: Normal. No mass. Right kidney: Normal size kidney with no mass or hydronephrosis. Left kidney: Normal size kidney with no mass or hydronephrosis. Aorta: Mild atherosclerosis abdominal aorta with no aneurysm. No free fluid, intraperitoneal air or significant lymphadenopathy. GI tract: Nondistended stomach. No small bowel obstruction. Mild fecal retention and constipation. Th e appendix is normal. There are a few scattered diverticula without acute diverticulitis. Abdominal wall: Negative. No hernia. Pelvis: No free fluid or adenopathy. Urinary bladder is well distended. Osseous structures: Moderate degenerative disc disease at L5-S1. Mild bilateral foraminal stenosis at L5-S1. CT/CT kidney stone [id number] IMPRESSION: 1. No renal obstruction or calcifications. 2. Cholelithiasis without acute cholecystitis. 3. Normal appendix. 4. No ascites or adenopathy.
[2022-06-24] MEDS: sodium chloride 0.9% 1,000 ML 999 ML IV (07:30)
--- NOTE | 2022-06-24 08:24 | ECG_ITS ---
[facility] Test Date: 2022-06-24 Pat Name: Oswaldo Medina Department: Room: Gender: Male Rod Buster: : 1960 Requested By: Chencho Pineda Order Number: [id number] Rhonda MD: Chasity Hanson M.D. Measurements Intervals [place] Rate: 63 P: 23 DC: 203 QRS: 87 QRSD: 106 T: -4 QT: 399 QTc: 411 Interpretive Statements SINUS RHYTHM POSSIBLE RIGHT VENTRICULAR CONDUCTION DELAY [RSR (QR) IN V1/V2] POSSIBLE INFERIOR MYOCARDIAL INFARCTION , OF INDETERMINATE AGE [30 ms Q WAVE IN II/aVF] Compared to ECG 06/24/2022 06:33:33 Myocardial infarct finding now present Atrial fibrillation no longer present Left-axis deviation no longer present Electronically Signed On 06-24-2022 23:07:47 CDT by Chasity Hanson M.D. [email or web address]. c. watkins memorial hospitalOrbis Educationsalem city [facility].[employer]/store/OM/[id number]
[2022-06-24 09:16] LABS: Troponin 5 2HR 7.85 ng/L (0-15)
[2022-06-24 09:33] LABS: Troponin 5 2HR Delta -3.15 ABS# (0-10)
[2022-06-24 09:54] LABS: Glucose Urine UA Norm (Normal); Protein Urine 1+ (Negative); Urine Appearance Clear (CLEAR); Urine Color Yellow (Yellow); pH Urine 6.5 (5-7)
[2022-06-24 09:55] LABS: Add Urine Culture? No; Add Urine Microscopic? YES; Bacteria Urine TRACE /hpf; Bilirubin Urine Neg (Negative); Blood Urine Trace (Negative); Ketones Urine Negative (Negative); Leukocyte Esterase Urine Negative (Negative); Nitrate Urine Negative (Negative); Urobilinogen Urine Norm (Negative); WBC Urine 0-4 /hpf (0-5)
--- NOTE | 2022-06-24 14:43 | DCPLANNER ---
Addendum entered by Elayne Pascual 07/25/22 06:01: Patient had a follow up appointment scheduled for 06.28.[address] Schumacher at general surgery - patient did attend appointment. Original Note: internal audit manager had message to schedule a follow up appointment for patient with general surgery. internal audit manager sent patients information to the front office staff at general surgery. Patients information will be printed and reviewed. Clinic will call patient with appointment information.
== END 2022-06-24 11:14 | disposition home or self-care (01) ==
PROVIDERS: Emergency Provider Family Medicine; PCP Family Medicine
DX: K80.50 Calculus of bile duct without cholangitis or cholecystitis without obstruction (principal); I10 Essential (primary) hypertension
CPT/HCPCS: 36415; 74176; 80053; 81001; 84484; 85025; 93005; 96361; 96374; 96375; 96376; 99285; J2270; J2405; J7030

== ENCOUNTER → 2022-06-28 08:19 | Outpatient (BNVA) | payer MEDICARE, SELFPAY | PROVIDERS: PCP Family Medicine; Visit Provider Surgery | DX: K80.20 Calculus of gallbladder without cholecystitis without obstruction (principal); K40.20 Bilateral inguinal hernia, without obstruction or gangrene, not specified as recurrent | CPT/HCPCS: 99203 ==

== ENCOUNTER 2022-07-04 05:49 | Day surgery (SDC) | payer MEDICARE, SELFPAY ==
[2022-07-03 14:57] VITALS: BMI 25.7
[2022-07-04] VITALS (17 sets, daily range): BP systolic 117–195; BP diastolic 74–110; PULSE 68–92; RESP 16–26; TEMP 36.3–37.3; O2SAT 90–100
[2022-07-04] MEDS: sodium chloride 0.9% 1,000 ML 30 ML IV (06:22)
--- NOTE | 2022-07-04 06:35 | ANES.PREANE2 ---
Pre-Anesthetic Assessment Height/Weight: Height 1.88 m Weight 90.718 kg Temp Pulse Resp BP Pulse Ox O2 Del Method 97.5 F L 68 18 117/84 97 07/04/22 06:15 07/04/22 06:15 07/04/22 06:15 07/04/22 06:15 07/04/22 06:15 07/04/22 06:15 Preop Diagnosis: Symptomatic Cholelithiasis Operation Date: 07/04/22 07:00 Proposed Procedures p Laparoscopic Cholecystectomy 62494,K80.20(Not Applicable) - Telly Schumacher DO Familial anesthetic complications: none Was Beta Joanne taken within 24 hours: Yes Was Clonidine taken within 24 hours: N/A Last intake: Intake Last Liquid Date 07/30/22 Last Liquid Time 23:00 Last Solid Date 07/03/22 Last Solid Time 19:00 Social Tobacco (chewing tobacco) chewed a bit of tobacco at 4 am, states did not swallow any Exam alert, oriented x 3, clear to auscultation bilaterally and regular rate & rhythm Airway Mallampati: Class III Dentition: full Comments: Comments: States he has a razor sharp tooth upper R side - caution for oral finger sweep CV/HEM Atrial Fibrillation, Stable Angina and Hypertension GI Gastroesophageal Reflux Disease Anesthetic Plan ASA status: 3 Anesthesia: General Risk of > 500 ml blood loss (7ml/kg in children): No Medications/Allergies Home Medications Medication Instructions Recorded Confirmed Last Taken Type sciortm-svzecxeugnfli-ncszwcyo 250 1 tab PO Q6H PRN Pain 02/01/20 07/03/22 Unknown History mg-250 mg-65 mg tablet (Excedrin Migraine) metoprolol succinate 50 mg 50 mg PO DAILY 90 days #90 tabs 12/06/21 07/04/22 1 Day Ago Rx tablet,extended release 24 hr ~07/03/22 triamcinolone acetonide 0.1 % 1 applic topical TID PRN Rash 04/30/22 07/03/22 Unknown History topical ointment amlodipine 2.5 mg tablet 2.5 mg PO DAILY HTN 90 days #90 05/31/22 07/04/22 1 Day Ago Rx tabs ~07/03/22 omeprazole 20 mg capsule,delayed 20 mg PO DAILY 90 days #90 caps 05/31/22 07/04/22 1 Day Ago Rx release ~07/03/22 alprazolam 1 mg tablet 1 mg PO BID PRN anxiety, insomnia 06/11/22 07/04/22 1 Day Ago Rx #60 tabs ~07/03/22 promethazine 25 mg tablet 25 mg PO Q6H PRN nausea and 06/24/22 07/04/22 1 Day Ago Rx vomiting #20 tabs ~07/03/22 Allergies Allergy/AdvReac Type Severity Reaction Status Date / Time lisinopril Allergy Unknown cough Verified 07/04/22 06:04 losartan Allergy Unknown unknown Verified 07/04/22 06:04 Current Medications Generic Name Dose Route Start Last Admin Trade Name Freq PRN Reason Stop Dose Admin Sodium Chloride 1,000 mls @ 30 mls/hr 07/04/22 06:00 07/04/22 06:22 Sodium Chloride 0.9% IV 07/05/22 05:59 30 mls/hr .Q24H BRIT Administration PFSH Anesthesia Medical History (Updated 07/02/22 @ 00:01 by ) Anxiety Atypical chest pain Bilateral inguinal hernia Chronic back pain Chronic neck pain Hypertension Osteoarthritis PUD (peptic ulcer disease) PVC (premature ventricular contraction) Supraventricular arrhythmia Thoracic aortic aneurysm Surgical History H/O neck surgery Family History Brother CAD (coronary artery disease) Cancer Sister Cancer Mother Cancer Father Cancer Grandmother Cancer Grandfather Cancer Family/Other Diabetes Stroke Parkinson disease Other Family history of premature coronary artery disease Denies family history of Clotting disorder Dementia Chronic kidney disease (CKD) Suicide Anesthesia complication Bleeding disorder Lung disease Social History Smoking and tobacco status: never smoked Alcohol intake: never History of recent travel: No Data Anesthesia Cardiac Studies: Echocardiogram 12/19/21
--- NOTE | 2022-07-04 07:04 | W.PM.OPSUD ---
Surgery/Procedure H&P Update DATE OF PROCEDURE: July 04, 2022 DATE H&P PERFORMED: 06/28/22 PREOP DIAGNOSIS: Symptomatic Cholelithiasis PLANNED PROCEDURE: Operation Date: 07/04/22 07:00 Proposed Procedures p Laparoscopic Cholecystectomy 33512,K80.20(Not Applicable) - Telly Schumacher DO
[2022-07-04] MEDS: ceFAZolin 2,000 MG in sodium chloride 0.9% (plus) 50 ML 100 MG IV (07:06)
--- NOTE | 2022-07-04 07:55 | P.OP_ITS ---
Operative Report Date of procedure: July 04, 2022 Pre-op diagnosis: Preop Diagnosis Symptomatic Cholelithiasis Post-op diagnosis: same Procedure done: Laparoscopic cholecystectomy Specimens removed/disposition: Gallbladder Surgeon: Dr. Telly Schumacher DO Anesthesia: General Estimated blood loss (mL): 5 Complications: None apparent Brief History: This is a very pleasant 62-year-old gentleman who was found to have symptomatic cholelithiasis. Laparoscopic cholecystectomy was indicated. The risks and benefits were explained and documented. Procedure: Patient was wheeled into the operative room and placed on the OR table in a supine position. Abdomen was inspected prepped and draped in usual sterile fashion. Time-out was performed and all present were in agreement. A 15 blade scalp was used to make a stab incision in the left upper quadrant and intra- abdominal insufflation was achieved using a Veress needle. After localizing the tissue incisions were made and a 5 millimeter trocar was placed into the umbilicus as well as 2 in the right upper quadrant. A 12 millimeter trocar was placed in the epigastrium. Gallbladder was grasped and elevated. The triangle of Calot was carefully dissected using blunt dissection and electrocautery until the triangle of Calot clearly identified. The cystic duct was clipped proximally and double clipped distally. The duct was then ligated proximally. The cystic artery was doubly clipped and ligated. The gallbladder was then removed from the liver bed using electrocautery. The gallbladder was removed from the abdomen using an Endo-Catch bag through the epigastric incision. The liver bed was inspected and no bleeding was seen. The abdomen was irrigated and suctioned. All ports removed. Skin was washed and dried. Incisions were closed with 3-0 and 4-O Vicryl in a subcuticular interrupted fashion. Skin glue was applied. Patient tolerated the procedure well.
[2022-07-04] MEDS: meperidine 50 mg/mL INJ 12.5 MG IVP ×2 (08:20→08:47)
--- NOTE | 2022-07-04 08:37 | SUR.PHASEI ---
0812 PT TO PACU 5 PT AWAKES TO VOICE, ORAL AIRWAY OUT , PT DENIES PAIN AND NAUSEA, PT QUICKLY BACK TO SLEEP PT SHIVERING UNCONTOLLED WARM BLANKETS X 3 TO PT, MONITOR SR WITH NO ECTOPY, VSS IV PATENT TO LT HAND WITH NS 100ML AT KVO RATE PER GRAVITY, ID BRACELET TO RT WRIST, PT ID'D WITH 2 IDENTIFIERS BILAT SCDS ON , PT ABDOMEN SOFT WITH 4 SITES D/I 0837 PT ON RA TRIAL, PT STATES PAIN IS BETTER, PT CONTINUES TO SHAKE UNCONTROLLED OFF AND ON , PT STATES THIS IS NORMAL FOR HIM , HE SHAKES AT HOME WELL. SEE EARLIER MEDS GIVEN, 0847 DR MEYER AT BEDSIDE 2ND DOSE OF DEMEROL GIVEN ORDERED FOR CONTINUED SHAKING.
--- NOTE | 2022-07-04 08:55 | SUR.PHASEI ---
PT MORE RELAXED, LESS SHIVERING NOW, VSS SATS 95-98 ON RA NO DISTRESS BP 167/97
[2022-07-04] MEDS: sodium chloride 0.9% 500 ML 999 ML IV (10:54)
[2022-07-04] MEDS: ondansetron 2 mg/ML SDV 2 mL 4 MG IVP (10:55)
--- NOTE | 2022-07-04 13:38 | ANE.PACU2 ---
Inpatient post-anesthesia follow up: Airway intact: Yes Vital signs: Temperature 97.3 F Pulse Rate 92 Respiratory Rate 18 Blood Pressure 119/74 Pulse Oximetry 93 Oxygen Delivery Me thod Room Air Oxygen Flow Rate 8 Fraction of Inspir ed Oxygen Hydration adequate: Yes Nausea and vomiting: No Pain level: 1 Mental status: Baseline
== END 2022-07-04 11:20 | disposition home or self-care (01) ==
PROVIDERS: PCP Family Medicine; Visit Provider Surgery
PROC: 0FT44ZZ Resection of Gallbladder, Percutaneous Endoscopic Approach (ICD-10-PCS; CPT 47562; principal; 2022-07-04 07:00)
DX: K80.10 Calculus of gallbladder with chronic cholecystitis without obstruction (principal); F17.220 Nicotine dependence, chewing tobacco, uncomplicated; I48.91 Unspecified atrial fibrillation; I10 Essential (primary) hypertension; K21.9 Gastro-esophageal reflux disease without esophagitis; F41.9 Anxiety disorder, unspecified; M19.90 Unspecified osteoarthritis, unspecified site; Z87.11 Personal history of peptic ulcer disease
CPT/HCPCS: 47562; 88304; J0330; J0690; J1100; J1200; J2175; J2250; J2405; J2704; J3010; J3490; J7030; J7040

== ENCOUNTER → 2022-07-23 08:31 | Outpatient (BNVA) | payer MEDICARE, SELFPAY | PROVIDERS: PCP Family Medicine; Visit Provider Surgery | DX: Z98.890 Other specified postprocedural states (principal); Z90.49 Acquired absence of other specified parts of digestive tract | CPT/HCPCS: 99024 ==

== ENCOUNTER → 2022-08-07 15:26 | Outpatient (BNVA) | payer MEDICARE, SELFPAY | PROVIDERS: PCP Family Medicine; Visit Provider Nurse Practitioner Family | DX: I10 Essential (primary) hypertension (principal); G25.0 Essential tremor; I49.8 Other specified cardiac arrhythmias | CPT/HCPCS: 99213 ==

== ENCOUNTER → 2022-11-05 12:11 | Outpatient (BNVA) | payer MEDICARE, SELFPAY | PROVIDERS: PCP Family Medicine; Visit Provider Internal Medicine Cardiovascular Disease | DX: R06.02 Shortness of breath (principal); R07.89 Other chest pain; I10 Essential (primary) hypertension | CPT/HCPCS: 36415; 80048; 83880; 99214 ==

== ENCOUNTER → 2022-11-07 15:34 | Outpatient (BNVA) | payer MEDICARE, SELFPAY | PROVIDERS: PCP Family Medicine; Visit Provider Surgery | DX: R11.0 Nausea (principal); Z80.0 Family history of malignant neoplasm of digestive organs; Z90.49 Acquired absence of other specified parts of digestive tract; K21.9 Gastro-esophageal reflux disease without esophagitis | CPT/HCPCS: 99213 ==

== ENCOUNTER 2022-11-27 05:46 | Day surgery (SDC) | payer MEDICARE, SELFPAY ==
[2022-11-25 08:02] VITALS: BMI 27.7
[2022-11-27 06:14] VITALS: BP 120/82; PULSE 68; RESP 18; TEMP 36.2; O2SAT 99
[2022-11-27] MEDS: sodium chloride 0.9% 1,000 ML 30 ML IV (06:21)
--- NOTE | 2022-11-27 06:47 | ANES.PREANE2 ---
Pre-Anesthetic Assessment Height/Weight: Height 1.85 m Weight 95.254 kg Temp Pulse Resp BP Pulse Ox O2 Del Method 97.1 F L 68 18 120/82 99 11/27/22 06:14 11/27/22 06:14 11/27/22 06:14 11/27/22 06:14 11/27/22 06:14 11/27/22 06:14 Preop Diagnosis: screening, GERD Operation Date: 11/27/22 07:00 Proposed Procedures p 36700 egd, 29831 colon Z12.11,K21.9(Not Applicable) - Telly Schumacher DO s Colonoscopy(Not Applicable) - Telly Schumacher DO Familial anesthetic complications: None Was Beta Joanne taken within 24 hours: Yes Was Clonidine taken within 24 hours: N/A Last intake: Intake Last Liquid Date 11/26/22 Last Liquid Time 22:00 Last Solid Date 11/25/22 Last Solid Time 14:00 Social Tobacco (chewing tobacco) and No alcohol Exam alert, oriented x 3 and clear to auscultation bilaterally Airway Submandibular: within normal limits Cervical ROM: within normal limits Mallampati: Class II Dentition: full History/ROS No significant history except as noted Pulmonary None reported CV/HEM Hypertension thoracic aneurysm- stable per cardiology None reported Hepatic None reported GI Gastroesophageal Reflux Disease and Peptic Ulcer Disease Metabolic pre diabetes Musc/skel Lower Back Pain Neuropsych Anxiety Anesthetic Plan ASA status: 3 Anesthesia: Anesthesia Evaluation and MAC Risk of > 500 ml blood loss (7ml/kg in children): No Medications/Allergies Home Medications Medication Instructions Recorded Confirmed Last Taken Type txjphsz-hbtextdlpioey-[id number] 250 1 tab PO Q6H PRN Pain 02/01/20 11/25/22 Unknown History mg-250 mg-65 mg tablet (Excedrin Migraine) alprazolam 1 mg tablet 1 mg PO BID PRN anxiety, insomnia 06/11/22 11/25/22 11/26/22 Rx #60 tabs docusate sodium 100 mg capsule 100 mg PO BID PRN constipation #60 07/23/22 11/25/22 Unknown Rx caps propranolol 40 mg tablet 40 mg PO BID #60 tabs 10/02/22 11/25/22 11/26/22 Rx furosemide 20 mg tablet 20 mg PO DAILY PRN shortness of 11/07/22 11/25/22 Unknown Rx breath #30 tabs pantoprazole 40 mg tablet,delayed 40 mg PO BID 6 weeks #84 tabs 11/07/22 11/25/22 11/26/22 Rx release (Protonix) potassium chloride 8 mEq 8 meq PO DAILY PRN Take with Lasix 11/07/22 11/25/22 Unknown Rx tablet,extended release #30 tabs amlodipine 2.5 mg tablet 2.5 mg PO DAILY 11/25/22 11/25/22 11/25/22 History Allergies Allergy/AdvReac Type Severity Reaction Status Date / Time lisinopril Allergy Unknown cough Verified 11/25/22 07:59 losartan Allergy Unknown unknown Verified 11/25/22 07:59 Current Medications Generic Name Dose Route Start Last Admin Trade Name Freq PRN Reason Stop Dose Admin Sodium Chloride 1,000 mls @ 30 mls/hr 11/27/22 06:00 11/27/22 06:21 Sodium Chloride 0.9% IV 11/28/22 05:59 30 mls/hr .Q24H BRIT Administration PFSH Anesthesia Medical History Anxiety Atypical chest pain Bilateral inguinal hernia Chronic back pain Chronic neck pain Hypertension Osteoarthritis PUD (peptic ulcer disease) PVC (premature ventricular contraction) Supraventricular arrhythmia Thoracic aortic aneurysm Surgical History H/O neck surgery History of laparoscopic cholecystectomy Family History Brother CAD (coronary artery disease) Cancer Sister Cancer Mother Cancer Father Cancer Grandmother Cancer Grandfather Cancer Family/Other Diabetes Stroke Parkinson disease Other Family history of premature coronary artery disease Denies family history of Clotting disorder Dementia Chronic kidney disease (CKD) Suicide Anesthesia complication Bleeding disorder Lung disease Social History Smoking and tobacco status: never smoked Alcohol intake: never Data Anesthesia Cardiac Studies: Echocardiogram 12/19/21
--- NOTE | 2022-11-27 06:54 | W.PM.OPSUD ---
Surgery/Procedure H&P Update DATE OF PROCEDURE: November 27, 2022 DATE H&P PERFORMED: 11/07/22 H&P UPDATE INFORMATION: I have reviewed H&P completed within last 30 days, I have examined patient prior to procedure and No changes to prior documentation PREOP DIAGNOSIS: Symptomatic Cholelithiasis PLANNED PROCEDURE: Operation Date: 11/27/22 07:00 Proposed Procedures p 22076 egd, 31900 colon Z12.11,K21.9(Not Applicable) - DO nani Castrejon Colonoscopy(Not Applicable) - Telly Schumacher DO
[2022-11-27 07:58] VITALS: BP 120/78; PULSE 59; RESP 16; TEMP 36.1; O2SAT 97
[2022-11-27 08:03] VITALS: BP 120/81; PULSE 66; RESP 18; O2SAT 96
[2022-11-27 08:13] VITALS: BP 120/73; PULSE 68; RESP 18; O2SAT 96
--- NOTE | 2022-11-27 08:16 | PC.NURSE ---
patient c/o pain in his rectum, rates 8 on scale 0-10
--- NOTE | 2022-11-27 08:23 | PC.NURSE ---
Dr Schumacher made aware of patients pain, rates 8 with burning sensation. patient feels like he needs to go poop.
--- NOTE | 2022-11-27 08:37 | PC.NURSE ---
assisted patient up to bathroom, at bedside. patient has tremors that he takes medication for. patient unsteady on feet. continue to c/o pain in rectum, rates [address] a burning sensation. Dr Schumacher aware.
--- NOTE | 2022-11-27 08:41 | PC.NURSE ---
assisted back to bed, several warm blankets have been provided. patient very pleasant.
--- NOTE | 2022-11-27 16:41 | ANE.PACU2 ---
Inpatient post-anesthesia follow up: Airway intact: Yes Vital signs: Temperature 97.0 F Pulse Rate 68 Respiratory Rate 18 Blood Pressure 120/73 Pulse Oximetry 96 Oxygen Delivery Me thod Room Air Oxygen Flow Rate Fraction of Inspir ed Oxygen Hydration adequate: Yes Nausea and vomiting: No Pain level: 2 Mental status: Baseline
== END 2022-11-27 09:03 | disposition home or self-care (01) ==
PROVIDERS: PCP Family Medicine; Visit Provider Surgery
PROC: 0DJ08ZZ Inspection of Upper Intestinal Tract, Via Natural or Artificial Opening Endoscopic (ICD-10-PCS; CPT 43235; principal; 2022-11-27 07:00)
PROC: 0DJD8ZZ Inspection of Lower Intestinal Tract, Via Natural or Artificial Opening Endoscopic (ICD-10-PCS; CPT 45378; 2022-11-27 07:00)
DX: Z12.11 Encounter for screening for malignant neoplasm of colon (principal); K21.9 Gastro-esophageal reflux disease without esophagitis; K64.8 Other hemorrhoids; I10 Essential (primary) hypertension; F41.9 Anxiety disorder, unspecified; Z87.11 Personal history of peptic ulcer disease
CPT/HCPCS: 43239; 46221; 88305; G0121; J2704; J7030

== ENCOUNTER → 2022-12-10 16:14 | Outpatient (BNVA) | payer MEDICARE, SELFPAY | PROVIDERS: PCP Family Medicine; Visit Provider Surgery | DX: K21.9 Gastro-esophageal reflux disease without esophagitis (principal); Z80.0 Family history of malignant neoplasm of digestive organs | CPT/HCPCS: 99212 ==

== ENCOUNTER → 2023-02-12 10:50 | Outpatient (BNVA) | payer MEDICARE, SELFPAY | PROVIDERS: PCP Family Medicine; Visit Provider Family Medicine | DX: Z00.00 Encounter for general adult medical examination without abnormal findings (principal); I10 Essential (primary) hypertension; Z12.5 Encounter for screening for malignant neoplasm of prostate | CPT/HCPCS: 80053; 80061; 85025; G0103 ==

== ENCOUNTER → 2023-03-24 15:33 | Outpatient (BNVA) | payer MEDICARE, SELFPAY | PROVIDERS: PCP Family Medicine; Visit Provider Dermatology | DX: L57.0 Actinic keratosis (principal); L82.1 Other seborrheic keratosis; L81.4 Other melanin hyperpigmentation; L57.8 Other skin changes due to chronic exposure to nonionizing radiation; D29.4 Benign neoplasm of scrotum; Z85.828 Personal history of other malignant neoplasm of skin | CPT/HCPCS: 17000; 99213 ==

== ENCOUNTER 2023-04-15 13:43 | Outpatient (CLI) | payer MEDICARE, SELFPAY ==
--- NOTE | 2023-04-15 14:00 | USCV_ITS ---
Oswaldo Medina Age: 63 Gender: M : 1960 Exam Date: 04/15/2023 14:05 Ordering Phys: Everardo Guaman DO Technologist: Danny Dupree Exam Location: [facility] – [place] Indication: PVD RIGHT LEFT Pressure (mmHg) Waveform Pressure (mmHg) Waveform 170.00 BINDER OPERATOR 181.00 165.00 DPA 180.00 1.10 Ankle/Brachial Index 1.18 146.00 Pre-Exercise Toe Pressure 157.00 0.95 Pre-Exercise Toe/Brachial Index 1.02 FINDINGS Resting ELLIE 1.1 on the right and 1.18 on the left Resting TBI of 0.95 on the right and 1.02 on the left CONCLUSIONS Normal resting ABIs and TBIs bilaterally No significant arterial obstruction, based on the above findings. Dr Guillermo Lester MD [facility] (Electronically Signed) Final Date: 15 April 2023 23:23 S
== END 2023-04-15 13:44 | disposition home or self-care (01) ==
PROVIDERS: PCP Family Medicine; Visit Provider Family Medicine
DX: I73.9 Peripheral vascular disease, unspecified (principal)
CPT/HCPCS: 93922

== ENCOUNTER 2023-05-08 16:42 | Emergency (ER) | payer MEDICARE, SELFPAY ==
[2023-05-08 16:51] VITALS: BP 153/84; PULSE 66; RESP 16; TEMP 37; O2SAT 98; BMI 26.4
[2023-05-08 17:08] LABS: Basophils % 0.5 %; Eosinophils # 0.2 10^3/uL (0.0-0.8); Eosinophils % 2.3 %; Hematocrit 49.2 % (37-53); Lymphocytes # 1.4 10^3/uL (0.8-4.8); Lymphocytes % 18.1 %; Mean Corpuscular HGB Conc 33.7 g/dL (30-55); Mean Corpuscular Volume 91.8 fl (82-101); Mean Platelet Volume 10.2 fL (7.4-10.4); Monocytes # 0.7 10^3/uL (0.2-0.9); Monocytes % 8.4 %; Neutrophils # 5.56 10^3/uL (1.8-7.7); Neutrophils % 70.3 %; Nucleated Red Blood Cells % 0 %; Platelet Count 207 10^3/cmm (157-399); Red Blood Count 5.36 10^6/uL (3.85-5.65); Red Cell Distribution Width 12.2 % (12.1-15.1)
[2023-05-08 17:22] LABS: Alanine Aminotransferase 27 U/L (0-41); Albumin Level 4.4 g/dL (3.5-5.2); Alkaline Phosphatase 96 U/L (40-130); Anion Gap 9.2 (5-19); Aspartate Amino Transferase 19 U/L (0-40); Blood Urea Nitrogen 12 mg/dL (8-23); Calcium 8.9 mg/dL (8.5-10.5); Carbon Dioxide 31 mmol/L (22-29); Chloride 103 mmol/L (98-107); Globulin 2.9 g/dL (1.3-4.6); Glomerular Filtration Rate 75.5 mL/min (90-130); Glucose 102 mg/dL (65-115); Lipase 42 U/L (13-60); Osmolality Calculated 288 mOsm/kg (285-295); Potassium 4.2 mmol/L (3.5-5.1); Sodium 139 mmol/L (136-145); Total Bilirubin 0.8 mg/dL (0.15-1.2); Total Protein 7.3 g/dL (6.6-8.7)
--- NOTE | 2023-05-08 17:31 | ED_ITS ---
Documented by User: Chencho Lester DO 05/09/23 06:01 HPI - Abdominal Pain General: Chief Complaint: Abdominal Pain Stated Complaint: clinic sent, abd pain Time Seen by Provider: 05/08/23 17:31 Source: patient Mode of arrival: ambulatory History of Present Illness: 63-year-old male presents emergency room with 4 to 5 days of right-sided abdominal pain. He states it is better when he walks. He denies dysuria urgency or frequency previously had his gallbladder out she been nauseous at times no vomiting. No no hematochezia melena hematemesis or coffee-ground emesis. MD elicited complaint: abdominal pain Onset (ago): day(s) (5) Pain Consistency: intermittent Location: RLQ Severity: moderate Quality: cramping Exacerbating factors: nothing Relieving factors: other (Walking) Associated Symptoms: Reports GI cramping; Denies anorexia, belching, bloating, change in bowel habits, change in stool character, chills, coffee ground emesis, constipation, diarrhea, dyspepsia, dysuria, excessive flatus, fever(s), heartburn, hematochezia, hematuria, hematemesis, fecal incontinence, loose stools, melena, nausea, poor appetite, syncope and vomiting Review of Systems Const: Denies: fever(s), chills, fatigue or malaise ENMT: Denies: throat pain, ear or mastoid pain, nasal discharge or nasal congestion Card: Denies: chest pain or syncope Resp: Denies: dyspnea, productive cough or non-productive cough GI: Reports: abdominal pain and GI cramping; Denies: nausea, vomiting, hematemesis, coffee ground emesis, heartburn, diarrhea, constipation, bloating, belching, excessive flatus, fecal incontinence, change in bowel habits, change in stool character, hematochezia or melena : Denies: dysuria or hematuria Skin/Breast: Denies: rash or pruritus PFSH ED PFSH: Medical History Anxiety Atypical chest pain Bilateral inguinal hernia Chronic back pain Chronic neck pain Hypertension Osteoarthritis PUD (peptic ulcer disease) PVC (premature ventricular contraction) Supraventricular arrhythmia Thoracic aortic aneurysm Surgical History H/O neck surgery History of laparoscopic cholecystectomy Family History Brother CAD (coronary artery disease) Cancer Sister Cancer Mother Cancer Father Cancer Grandmother Cancer Grandfather Cancer Family/Other Diabetes Stroke Parkinson disease Other Family history of premature coronary artery disease Denies family history of Clotting disorder Dementia Chronic kidney disease (CKD) Suicide Anesthesia complication Bleeding disorder Lung disease Social History Smoking and tobacco status: never smoked Alcohol intake: never Substance/Drug Use: never Physical Exam Const: GENERAL APPEARANCE: cooperative and comfortable ORIENTATION/CONSCIOUSNESS: Yes awake, Yes oriented to person, Yes oriented to place and Yes oriented to time HENMT: COMMON NORMALS: normocephalic, atraumatic and hearing grossly normal bi laterally HEAD & SCALP: normocephalic and atraumatic Resp: COMMON NORMALS: normal respiratory effort, No retractions, No use of accessory muscles and clear to auscultation bilaterally AUSCULTATION: clear to auscultation bilaterally Cardio: COMMON NORMALS: regular rate, regular rhythm and No murmurs present (Cardio) RATE: regular rate RHYTHM: regular rhythm GI: COMMON NORMALS: No hepatosplenomegaly present AUSCULTATION: Yes normoactive bowel sounds PALPATION: Yes Tenderness to palpation present (GI) Details: RLQ, No Guarding due to palpation present (GI) and Yes No hepat osplenomegaly present Extremity: COMMON NORMALS: normal to inspection, capillary refill normal, no clubbing, cyanosis or edema, no calf tenderness and no pedal edema Neuro: SENSORIUM/ORIENTATION: Yes oriented to person, Yes oriented to place and Yes oriented to time Skin: COMMON NORMALS: no rashes or lesions noted GENERAL SKIN EXAM: no rashes or lesions noted Course Vital Signs: Vital signs: Vital Signs Temperature 98.6 F 05/08/23 16:51 Pulse Rate 66 05/08/23 16:51 Respiratory Rate 16 05/08/23 16:51 Blood Pressure 153/84 05/08/23 16:51 Pulse Oximetry 98 05/08/23 16:51 Oxygen Delivery Me thod Room Air 05/08/23 16:51 MDM - Abdominal Pain Medical Decision Making Care signed out to Dr. Dowling at change of shift. See final notes for diagnosis and disposition. Patient presents to the ER with 4 to 5 days of right-sided abdominal pain. Pain is better when the patient walks. Patient is worried about appendicitis. Patient was worked up in the normal fashion for abdominal pain that included blood work urine and eventually an abdomen and pelvis CT with contrast. Lab work and urine was essentially benign. Abdomen pelvis CT was negative for acute inflammatory process in the abdomen or pelvis. Patient had minimal diverticulosis and had degenerative disc disease. These results were explained to the patient and the patient was comfortable with discharge. Patient will be referred back to his family practice doc Lab Data 05/08/23 16:58 05/08/23 16:58 Labs/Radiology: Radiology Impressions Abdomen/Pelvis CT 05/08/23 17:43 IMPRESSION: 1. Negative for acute inflammatory process in the abdomen or pelvis. 2. Cholecystectomy. 3. Minimal diverticulosis without diverticulitis. 4. L5/S1 degenerative disc space disease. 5. Prostate gland somewhat enlarged, please correlate clinically. Laboratory Results WBC 7.90 10^3/uL (3.29-11.43) 05/08/23 16:58 RBC 5.36 10^6/uL (3.85-5.65) 05/08/23 16:58 Hgb 16.60 g/dL (11.27-16.99) 05/08/23 16:58 Hct 49.2 % (37-53) 05/08/23 16:58 MCV 91.8 fl (82-101) 05/08/23 16:58 MCH 31.0 pg (27-33) 05/08/23 16:58 MCHC 33.7 g/dL (30-55) 05/08/23 16:58 RDW 12.2 % (12.1-15.1) 05/08/23 16:58 Plt Count 207 10^3/cmm (157-399) 05/08/23 16:58 MPV 10.2 fL (7.4-10.4) 05/08/23 16:58 Neut % (Auto) 70.3 % 05/08/23 16:58 Lymph % (Auto) 18.1 % 05/08/23 16:58 [place] % (Auto) 8.4 % 05/08/23 16:58 Eos % (Auto) 2.3 % 05/08/23 16:58 Baso % (Auto) 0.5 % 05/08/23 16:58 Neut # (Auto) 5.56 10^3/uL (1.8-7.7) 05/08/23 16:58 Lymph # (Auto) 1.4 10^3/uL (0.8-4.8) 05/08/23 16:58 [place] # (Auto) 0.7 10^3/uL (0.2-0.9) 05/08/23 16:58 Eos # (Auto) 0.2 10^3/uL (0.0-0.8) 05/08/23 16:58 Baso # (Auto) 0.0 10^3/uL (0.0-0.1) 05/08/23 16:58 Nucleated RBC % (auto) 0 % 05/08/23 16:58 Nucleated RBCs # 0.0 /100WBC 05/08/23 16:58 Sodium 139 mmol/L (136-145) 05/08/23 16:58 Potassium 4.2 mmol/L (3.5-5.1) 05/08/23 16:58 Chloride 103 mmol/L (98-107) 05/08/23 16:58 Carbon Dioxide 31 mmol/L (22-29) H 05/08/23 16:58 Anion Gap 9.2 (5-19) 05/08/23 16:58 BUN 12 mg/dL (8-23) 05/08/23 16:58 Creatinine 1.0 mg/dL (0.7-1.2) 05/08/23 16:58 GFR Calculation 75.5 mL/min (90-130) L 05/08/23 16:58 Glucose 102 mg/dL (65-115) 05/08/23 16:58 Calculated Osmolality 288 mOsm/kg (285-295) 05/08/23 16:58 Calcium 8.9 mg/dL (8.5-10.5) 05/08/23 16:58 Total Bilirubin 0.8 mg/dL (0.15-1.2) 05/08/23 16:58 AST 19 U/L (0-40) 05/08/23 16:58 ALT 27 U/L (0-41) 05/08/23 16:58 Alkaline Phosphatase 96 U/L (40-130) 05/08/23 16:58 Total Protein 7.3 g/dL (6.6-8.7) 05/08/23 16:58 Albumin 4.4 g/dL (3.5-5.2) 05/08/23 16:58 Globulin 2.9 g/dL (1.3-4.6) 05/08/23 16:58 Lipase 42 U/L (13-60) 05/08/23 16:58 Urine Color Yellow (Yellow) 05/08/23 17:46 Urine Appearance Clear (CLEAR) 05/08/23 17:46 Urine pH 7 (5-7) 05/08/23 17:46 Ur Specific [place] 1.000 (1.005-1.030) L 05/08/23 17:46 Urine Protein Neg (Negative) 05/08/23 17:46 Urine Glucose (UA) Norm (Normal) 05/08/23 17:46 Urine Ketones Negative (Negative) 05/08/23 17:46 Urine Blood Neg (Negative) 05/08/23 17:46 Urine Nitrate Negative (Negative) 05/08/23 17:46 Urine Bilirubin Neg (Negative) 05/08/23 17:46 Urine Urobilinogen Norm mg/dL (Negative) 05/08/23 17:46 Ur Leukocyte Esterase Negative (Negative) 05/08/23 17:46 Discharge Plan Discharge Patient Disposition: Home Clinical Impression: Abdominal pain Qualifiers: Abdominal location: right lower quadrant Qualified Code(s): R10.31 - Right lower quadrant pain Condition: Stable Prescriptions: No Action Excedrin Migraine 250-250-65 mg tablet 1 tab PO Q6H PRN (Reason: Pain) Hold Instructions: Resume on 07/07/22. docusate sodium 100 mg capsule 100 mg PO BID PRN (Reason: constipation) Qty: 60 2RF pantoprazole [Protonix] 40 mg tablet,delayed release (DR/EC) 40 mg PO BID 42 Days Qty: 84 1RF alprazolam 1 mg tablet 1 mg PO BID PRN (Reason: anxiety, insomnia) Qty: 180 2RF furosemide 20 mg tablet 20 mg PO DAILY PRN (Reason: shortness of breath) Qty: 30 6RF potassium chloride 8 mEq tablet extended release 8 meq PO DAILY PRN (Reason: Take with Lasix) Qty: 30 6RF amlodipine 2.5 mg tablet 2.5 mg PO DAILY Qty: 90 1RF Rx Instructions: TAKE 1 TABLET BY MOUTH DAILY FOR HYPERTENSION propranolol 40 mg tablet 40 mg PO BID Qty: 60 2RF Discharge Orders: Discharge ED (Routine); Ordered 05/08/23 Ordered By: Javon Dowling Referrals: Everardo Guaman DO [Primary Care Provider] - 1 week Patient Instructions: Abdominal Pain (ED) Activity Restrictions/Additional Instructions: Please follow-up with your family practice physician within the next 7 days for further evaluation and treatment. If your pain worsens please feel free to come back to the ER for evaluation. Coding Level of Care Code ED Supervisor [employer] for Chg Fwd Documented by User: Javon Dowling DO 05/08/23 18:56 HPI - Abdominal Pain General: Chief Complaint: Abdominal Pain Stated Complaint: clinic sent, abd pain Time Seen by Provider: 05/08/23 17:31 PFSH ED PFSH: Medical History Anxiety Atypical chest pain Bilateral inguinal hernia Chronic back pain Chronic neck pain Hypertension Osteoarthritis PUD (peptic ulcer disease) PVC (premature ventricular contraction) Supraventricular arrhythmia Thoracic aortic aneurysm Surgical History H/O neck surgery History of laparoscopic cholecystectomy Family History Brother CAD (coronary artery disease) Cancer Sister Cancer Mother Cancer Father Cancer Grandmother Cancer Grandfather Cancer Family/Other Diabetes Stroke Parkinson disease Other Family history of premature coronary artery disease Denies family history of Clotting disorder Dementia Chronic kidney disease (CKD) Suicide Anesthesia complication Bleeding disorder Lung disease Social History Smoking and tobacco status: never smoked Alcohol intake: never Substance/Drug Use: never Course Vital Signs: Vital signs: Vital Signs Temperature 98.6 F 05/08/23 16:51 Pulse Rate 66 05/08/23 16:51 Respiratory Rate 16 05/08/23 16:51 Blood Pressure 153/84 05/08/23 16:51 Pulse Oximetry 98 05/08/23 16:51 Oxygen Delivery Me thod Room Air 05/08/23 16:51 MDM - Abdominal Pain Medical Decision Making Patient presents to the ER with 4 to 5 days of right-sided abdominal pain. Pain is better when the patient walks. Patient is worried about appendicitis. Patient was worked up in the normal fashion for abdominal pain that included blood work urine and eventually an abdomen and pelvis CT with contrast. Lab work and urine was essentially benign. Abdomen pelvis CT was negative for acute inflammatory process in the abdomen or pelvis. Patient had minimal diverticulosis and had degenerative disc disease. These results were explained to the patient and the patient was comfortable with discharge. Patient will be referred back to his family practice doc Differential Diagnosis Likely abdominal pain; Unlikely acute appendicitis, calculus of kidney, constipation, diverticulitis, endometriosis, gastroenteritis, pancreatitis or small bowel obstruction Medical Records I reviewed the patient's medical records. Lab Data I reviewed the patient's lab results. 05/08/23 16:58 05/08/23 16:58 Labs/Radiology: Radiology Impressions Abdomen/Pelvis CT 05/08/23 17:43 IMPRESSION: 1. Negative for acute inflammatory process in the abdomen or pelvis. 2. Cholecystectomy. 3. Minimal diverticulosis without diverticulitis. 4. L5/S1 degenerative disc space disease. 5. Prostate gland somewhat enlarged, please correlate clinically. Laboratory Results WBC 7.90 10^3/uL (3.29-11.43) 05/08/23 16:58 RBC 5.36 10^6/uL (3.85-5.65) 05/08/23 16:58 Hgb 16.60 g/dL (11.27-16.99) 05/08/23 16:58 Hct 49.2 % (37-53) 05/08/23 16:58 MCV 91.8 fl (82-101) 05/08/23 16:58 MCH 31.0 pg (27-33) 05/08/23 16:58 MCHC 33.7 g/dL (30-55) 05/08/23 16:58 RDW 12.2 % (12.1-15.1) 05/08/23 16:58 Plt Count 207 10^3/cmm (157-399) 05/08/23 16:58 MPV 10.2 fL (7.4-10.4) 05/08/23 16:58 Neut % (Auto) 70.3 % 05/08/23 16:58 Lymph % (Auto) 18.1 % 05/08/23 16:58 [place] % (Auto) 8.4 % 05/08/23 16:58 Eos % (Auto) 2.3 % 05/08/23 16:58 Baso % (Auto) 0.5 % 05/08/23 16:58 Neut # (Auto) 5.56 10^3/uL (1.8-7.7) 05/08/23 16:58 Lymph # (Auto) 1.4 10^3/uL (0.8-4.8) 05/08/23 16:58 [place] # (Auto) 0.7 10^3/uL (0.2-0.9) 05/08/23 16:58 Eos # (Auto) 0.2 10^3/uL (0.0-0.8) 05/08/23 16:58 Baso # (Auto) 0.0 10^3/uL (0.0-0.1) 05/08/23 16:58 Nucleated RBC % (auto) 0 % 05/08/23 16:58 Nucleated RBCs # 0.0 /100WBC 05/08/23 16:58 Sodium 139 mmol/L (136-145) 05/08/23 16:58 Potassium 4.2 mmol/L (3.5-5.1) 05/08/23 16:58 Chloride 103 mmol/L (98-107) 05/08/23 16:58 Carbon Dioxide 31 mmol/L (22-29) H 05/08/23 16:58 Anion Gap 9.2 (5-19) 05/08/23 16:58 BUN 12 mg/dL (8-23) 05/08/23 16:58 Creatinine 1.0 mg/dL (0.7-1.2) 05/08/23 16:58 GFR Calculation 75.5 mL/min (90-130) L 05/08/23 16:58 Glucose 102 mg/dL (65-115) 05/08/23 16:58 Calculated Osmolality 288 mOsm/kg (285-295) 05/08/23 16:58 Calcium 8.9 mg/dL (8.5-10.5) 05/08/23 16:58 Total Bilirubin 0.8 mg/dL (0.15-1.2) 05/08/23 16:58 AST 19 U/L (0-40) 05/08/23 16:58 ALT 27 U/L (0-41) 05/08/23 16:58 Alkaline Phosphatase 96 U/L (40-130) 05/08/23 16:58 Total Protein 7.3 g/dL (6.6-8.7) 05/08/23 16:58 Albumin 4.4 g/dL (3.5-5.2) 05/08/23 16:58 Globulin 2.9 g/dL (1.3-4.6) 05/08/23 16:58 Lipase 42 U/L (13-60) 05/08/23 16:58 Urine Color Yellow (Yellow) 05/08/23 17:46 Urine Appearance Clear (CLEAR) 05/08/23 17:46 Urine pH 7 (5-7) 05/08/23 17:46 Ur Specific [place] 1.000 (1.005-1.030) L 05/08/23 17:46 Urine Protein Neg (Negative) 05/08/23 17:46 Urine Glucose (UA) Norm (Normal) 05/08/23 17:46 Urine Ketones Negative (Negative) 05/08/23 17:46 Urine Blood Neg (Negative) 05/08/23 17:46 Urine Nitrate Negative (Negative) 05/08/23 17:46 Urine Bilirubin Neg (Negative) 05/08/23 17:46 Urine Urobilinogen Norm mg/dL (Negative) 05/08/23 17:46 Ur Leukocyte Esterase Negative (Negative) 05/08/23 17:46 Discharge Plan Discharge Patient Disposition: Home Clinical Impression: Abdominal pain Qualifiers: Abdominal location: right lower quadrant Qualified Code(s): R10.31 - Right lower quadrant pain Condition: Stable Prescriptions: No Action Excedrin Migraine 250-250-65 mg tablet 1 tab PO Q6H PRN (Reason: Pain) Hold Instructions: Resume on 07/07/22. docusate sodium 100 mg capsule 100 mg PO BID PRN (Reason: constipation) Qty: 60 2RF pantoprazole [Protonix] 40 mg tablet,delayed release (DR/EC) 40 mg PO BID 42 Days Qty: 84 1RF alprazolam 1 mg tablet 1 mg PO BID PRN (Reason: anxiety, insomnia) Qty: 180 2RF furosemide 20 mg tablet 20 mg PO DAILY PRN (Reason: shortness of breath) Qty: 30 6RF potassium chloride 8 mEq tablet extended release 8 meq PO DAILY PRN (Reason: Take with Lasix) Qty: 30 6RF amlodipine 2.5 mg tablet 2.5 mg PO DAILY Qty: 90 1RF Rx Instructions: TAKE 1 TABLET BY MOUTH DAILY FOR HYPERTENSION propranolol 40 mg tablet 40 mg PO BID Qty: 60 2RF Discharge Orders: Discharge ED (Routine); Ordered 05/08/23 Ordered By: Javon Dowling Referrals: Everardo Guaman DO [Primary Care Provider] - 1 week Patient Instructions: Abdominal Pain (ED) Activity Restrictions/Additional Instructions: Please follow-up with your family practice physician within the next 7 days for further evaluation and treatment. If your pain worsens please feel free to come back to the ER for evaluation. Coding Level of Care Code ED Supervisor [employer] for Osmany Roman
--- NOTE | 2023-05-08 17:43 | CTR_ITS ---
PROCEDURE INFORMATION: Exam: CT Abdomen And Pelvis Without Contrast Exam date and time: 05/08/2023 5:52 PM Age: 63 years old Clinical indication: Abdominal pain; Generalized; Prior surgery; Surgery date: 6+ months; Surgery type: Ruth TECHNIQUE: Imaging protocol: Computed tomography of the abdomen and pelvis without contrast. Radiation optimization: All CT scans at this facility use at least one of these dose optimization techniques: automated exposure control; mA and/or kV adjustment per patient size (includes targeted exams where dose is matched to clinical indication); or iterative reconstruction. REPORTING DATA: Count of CT and Cardiac NM exams in prior 12 months: This patient has received 2 known CTs and 0 known cardiac nuclear medicine studies in the 12 months prior to the current study. COMPARISON: CT kidney stone [id number] 06/24/2022 7:45 AM RADIATION DOSE METRICS: Total DLP (mGy-cm): 647 FINDINGS: Liver: Normal. No mass. Gallbladder and bile ducts: Cholecystectomy. Pancreas: Normal. No ductal dilation. Spleen: Normal. No splenomegaly. Adrenal glands: Normal. No mass. Kidneys and ureters: Normal. No hydronephrosis. Stomach and bowel: Minimal diverticulosis without diverticulitis. Appendix: No evidence of appendicitis. Intraperitoneal space: Unremarkable. No free air. No significant fluid collection. Vasculature: Unremarkable. No abdominal aortic aneurysm. Lymph nodes: Unremarkable. No enlarged lymph nodes. Urinary bladder: Unremarkable as visualized. Reproductive: Prostate gland somewhat enlarged, please correlate clinically. Bones/joints: L5/S1 degenerative disc space disease. Soft tissues: Unremarkable. CT/CT abdomen pelvis wo con [id number] IMPRESSION: 1. Negative for acute inflammatory process in the abdomen or pelvis. 2. Cholecystectomy. 3. Minimal diverticulosis without diverticulitis. 4. L5/S1 degenerative disc space disease. 5. Prostate gland somewhat enlarged, please correlate clinically.
[2023-05-08 18:25] LABS: Add Urine Microscopic? NO; Charge for UA Resulting for Rev
[2023-05-08 18:28] LABS: Bilirubin Urine Neg (Negative); Blood Urine Neg (Negative); Glucose Urine UA Norm (Normal); Ketones Urine Negative (Negative); Leukocyte Esterase Urine Negative (Negative); Nitrate Urine Negative (Negative); Protein Urine Neg (Negative); Urine Appearance Clear (CLEAR); Urine Color Yellow (Yellow); Urobilinogen Urine Norm (Negative); pH Urine 7 (5-7)
== END 2023-05-08 19:15 | disposition home or self-care (01) ==
PROVIDERS: Emergency Medicine; Emergency Provider Family Medicine; PCP Family Medicine
DX: R10.31 Right lower quadrant pain (principal); I10 Essential (primary) hypertension
CPT/HCPCS: 36415; 74176; 80053; 81003; 83690; 85025; 99284

== ENCOUNTER → 2023-05-20 11:24 | Outpatient (BNVA) | payer MEDICARE, SELFPAY | PROVIDERS: PCP Family Medicine; Visit Provider Internal Medicine Cardiovascular Disease | DX: I71.20 Thoracic aortic aneurysm, without rupture, unspecified (principal); I10 Essential (primary) hypertension; F17.228 Nicotine dependence, chewing tobacco, with other nicotine-induced disorders; I49.8 Other specified cardiac arrhythmias | CPT/HCPCS: 99214 ==

== ENCOUNTER 2023-06-23 11:56 | Outpatient (CLI) | payer MEDICARE, SELFPAY ==
--- NOTE | 2023-06-23 12:30 | CT_ITS ---
WS: [id number] CT HEAD TECHNIQUE: Noncontrast and contrast-enhanced CT of the head. CLINICAL INFORMATION: Hallucinations COMPARISON: None. DLP: 2131.[address] scans at [facility] use at least one of these dose optimization techniques: automated e xposure control; mA and/or kV adjustment per patient size (includes targeted exams where dose is matc hed to clinical indication); or iterative reconstruction. FINDINGS: No evidence intracranial hemorrhage or mass effect. Ventricular system and basilar cisterns are paten t. Mild small vessel changes. Mild parenchymal volume loss. No extra-axial fluid collections. No evid ence of mass or mass effect. Benign basal ganglia calcifications. Paranasal sinuses are well aerated. Mastoid air cells are well aerated. No abnormal intraparenchymal enhancement. Normal dural venous si nuses. IMPRESSION: 1. No evidence intracranial hemorrhage or mass effect. 2. Mild small vessel changes with mild parenchymal volume loss. 3. No abnormal intracranial enhancement. 4. No other suspicious findings.
[2023-06-23] MEDS: iohexol 350 mg/mL 500 mL Btl (per mL) IV (12:52)
== END 2023-06-23 11:57 | disposition home or self-care (01) ==
LOC: RAD 11:56
PROVIDERS: PCP Family Medicine; Visit Provider Family Medicine
DX: R44.3 Hallucinations, unspecified (principal); R29.898 Other symptoms and signs involving the musculoskeletal system
CPT/HCPCS: 70470; Q9967

== ENCOUNTER 2023-08-06 12:58 | Outpatient (RCR) | payer MEDICARE, SELFPAY | END 2023-08-31 23:59 | disposition home or self-care (01) | LOC: SPT 12:58 | PROVIDERS: PCP Family Medicine; Visit Provider Family Medicine | DX: M54.50 Low back pain, unspecified (principal); R29.898 Other symptoms and signs involving the musculoskeletal system | CPT/HCPCS: 97110; 97161 ==

== ENCOUNTER 2023-09-01 06:00 | Outpatient (RCR) | payer MEDICARE, SELFPAY | END 2023-10-01 23:59 | disposition home or self-care (01) | LOC: SPT 06:00 | PROVIDERS: PCP Family Medicine; Visit Provider Family Medicine | DX: M54.50 Low back pain, unspecified (principal); R29.898 Other symptoms and signs involving the musculoskeletal system | CPT/HCPCS: 97110 ==

== ENCOUNTER 2023-10-02 06:00 | Outpatient (RCR) | payer MEDICARE, SELFPAY | END 2023-10-30 23:59 | disposition home or self-care (01) | LOC: SPT 06:00 | PROVIDERS: PCP Family Medicine; Visit Provider Family Medicine | DX: M54.50 Low back pain, unspecified (principal); M62.81 Muscle weakness (generalized) | CPT/HCPCS: 97110 ==

== ENCOUNTER 2023-11-10 15:46 | Outpatient (CLI) | payer MEDICARE, SELFPAY ==
--- NOTE | 2023-11-10 16:00 | CT_ITS ---
WS: [id number] CTA THORACIC AORTA WITH AND WITHOUT CONTRAST. HISTORY: Thoracic aortic aneurysm TECHNIQUE: CT imaging of the thorax is performed with and without contrast. After noncontrast imaging is performed, CT angiogram is performed during injection of Omnipaque 350; 100 mL IV.. Sagittal and coronal reconstructions, sagittal and coronal MIP imaging is submitted. All CT scans at [facility] use at least one of these dose optimization techniques: automated exposure control; mA and/or k V adjustment per patient size (includes targeted exams where dose is matched to clinical indication); or iterative reconstruction. DLP: 718.41 mGy.cm COMPARISON: 06/07/2022, 04/06/2018 Very mild dilatation of the ascending aorta through the aortic arch. Maximum diameter of 3.[address] able. Through the aortic arch the diameter returns to normal. There is a small amount of calcified pl aque through the arch of the aorta. No dissection. No progression of aneurysm. Sinotubular junction a nd the aortic root are normal. Normal appearance of the great vessels. Pulmonary artery size is normal. No pulmonary mass or nodule. No pneumonia. No pericardial or pleural effusions. There are few scattered coronary artery calcifications. Heart is very slightly enlarged. Small mediastinal and hilar lymph nodes. Some of these lymph nodes contain focal calcifications. Kallie r lymph nodes are indeterminate measuring up to 13 mm in diameter but stable. Similar lymph nodes antonio cribed on 04/06/2018. No adrenal mass. The visualized liver is normal. IMPRESSION: 1. Stable mildly aneurysmal ascending thoracic aorta through the arch at 3.9 cm. Stable since 04/06/20 18. 2. No aortic dissection. 3. No pulmonary mass. 4. Long-term stability of indeterminate hilar lymph nodes.
[2023-11-10 16:25] LABS: Blood Urea Nitrogen 11 mg/dL (8-23); Glomerular Filtration Rate 67.6 mL/min (90-130)
[2023-11-10] MEDS: iohexol 350 mg/mL 500 mL Btl (per mL) IV (16:36)
== END 2023-11-10 15:47 | disposition home or self-care (01) ==
LOC: RAD 15:47
PROVIDERS: PCP Family Medicine; Visit Provider Family Medicine
DX: I71.21 Aneurysm of the ascending aorta, without rupture (principal)
CPT/HCPCS: 71275; 82565; 84520; Q9967

== ENCOUNTER → 2023-12-11 11:06 | Outpatient (BNVA) | payer MEDICARE, SELFPAY | PROVIDERS: PCP Family Medicine; Visit Provider Internal Medicine Cardiovascular Disease | DX: R07.9 Chest pain, unspecified (principal); I71.20 Thoracic aortic aneurysm, without rupture, unspecified; I10 Essential (primary) hypertension; I49.9 Cardiac arrhythmia, unspecified; I73.9 Peripheral vascular disease, unspecified; I44.0 Atrioventricular block, first degree; R94.31 Abnormal electrocardiogram [ECG] [EKG] | CPT/HCPCS: 93005; 99214 ==

== ENCOUNTER 2023-12-22 09:17 | Outpatient (CLI) | payer MEDICARE, SELFPAY ==
[2023-12-22 09:45] VITALS: BMI 27.7
--- NOTE | 2023-12-22 10:42 | ECG_ITS ---
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 Interpretive Statements NAME OF STUDY: EXERCISE SESTAMIBI STRESS TEST INDICATION: Exertional Angina, PROCEDURE: The baseline electrocardiogram showed normal sinus rhythm with normal ST-Ts minimal left axis deviation. At the baseline, the patient's blood pressure was 122/70 mm Hg with a heart rate of 78. The patient exercised for 6 minutes and 43 seconds on a standard Donn protocol. Patient attained a maximum heart rate of 142 beats per minute(91% of the maximum predicted heart rate) with a blood pressure at the peak exercise of 117/103 mm Hg. The EKG at the peak exercise revealed no significant changes. Patient did not have any chest pain or any significant arrhythmis with the exercise Sestamibi was injected 1 minute prior to the peak exercise During the recovery phase, there were no new changes. Blood pressure at the end of the recovery phase was 144/71 mm Hg with a heart rate of 93 per minute. CONCLUSION: 1. Normal EKG response to [treadmill exercise 2. No exercise-induced chest pain or cardiac arrhythmia 3. Fair exercise tolerance, attained a maximum of 9.6 METs 4. Sestamibi/Sestamibi perfusion results pending; see separate report. Electronically Signed On 12-29-2023 23:10:28 CDT by Guillermo Lester M.D. [email or web address].[facility].[employer]/[id number]
--- NOTE | 2023-12-22 10:42 | NMCV_ITS ---
NM chelsea perf SPECT r/s* [id number] Oswaldo Medina Age: 63 Gender: M : 1960 Exam Date: 12/22/2023 10:40 Ordering Phys: Guillermo Lester MD ([email or web address]) Technologist: SHANNA Fortune Exam Location: [facility] Indications: CORONARY ANGIOPLASTY STATUS STRESS TEST Please see separate stress test report in [facility] for full findings IMAGE PROTOCOL Rest/Stress 1 Exercise Day Radiopharmaceutical Dose (mCi) Administration Site Administered by Rest: Tc-99m 10.6 IV SHANNA Aldana Sestamibi Stress:Tc-99m 32.4 IV SHANNA Aldana Sestamiantony Rest: 22-Dec-2023 60 Discovery 630 Stress: 22-Dec-2023 30 Discovery 630 Radiopharmaceutical was injected at 85 % maximum heart rate. Images obtained in supine and prone position. SPECT RESULTS Technical Quality: Excellent Raw Data Analysis: Normal Image Corrections: No attenuation or motion correction applied Summed Stress Score: 1 Summed Rest Score: 4 Summed Difference Score: 0 PERFUSION FINDINGS Small to moderate area of slightly decreased tracer uptake was noted in the inferior and inferolateral region with no significant reversibility FUNCTIONAL RESULTS (calculated via Gated SPECT) Stress Image LV EF (%): 85 Stress EDV (mL):84 TID: 0.68 Stress ESV (mL):13 FUNCTIONAL FINDINGS: Segmental wall motion analysis revealing no gross wall motion abnormalities IMPRESSIONS 1. Myocardial perfusion imaging revealing small to moderate area of persistent decreased tracer uptake involving the inferior and inferolateral regions suggestive of myocardial scarring versus attenuation artifact 2. Normal LV ejection fraction of 85%. 3. LV wall motion analysis revealing no gross wall motion abnormalities. 4. Normal LV volume Low probability for coronary ischemia, based on the above findings Compared to the study from 06/05/2018, there may not be a significant change Dr Guillermo Lester MD FAC (Electronically Signed) Final Date: 22 December 2023 14:04 S
[2023-12-22 11:34] VITALS: BP 144/71; PULSE 93
== END 2023-12-22 09:18 | disposition home or self-care (01) ==
PROVIDERS: PCP Family Medicine; Visit Provider Internal Medicine Cardiovascular Disease
DX: I20.89 Other forms of angina pectoris (principal)
CPT/HCPCS: 36415; 78452; 93017; A9500

== ENCOUNTER → 2024-04-07 14:26 | Outpatient (BNVA) | payer MEDICARE, SELFPAY | PROVIDERS: PCP Family Medicine; Visit Provider Family Medicine | DX: G25.0 Essential tremor (principal); I10 Essential (primary) hypertension; M10.9 Gout, unspecified; R53.82 Chronic fatigue, unspecified; Z12.5 Encounter for screening for malignant neoplasm of prostate; F41.1 Generalized anxiety disorder; F41.0 Panic disorder [episodic paroxysmal anxiety]; E83.42 Hypomagnesemia; E55.9 Vitamin D deficiency, unspecified; R79.89 Other specified abnormal findings of blood chemistry; R73.9 Hyperglycemia, unspecified | CPT/HCPCS: 80061; 82306; 82607; 82746; 83036; 83735; 84439; 84443; 84550; 85025; 85651; 86140; G0103 ==

== ENCOUNTER → 2024-04-13 13:44 | Outpatient (BNVA) | payer MEDICARE, SELFPAY | PROVIDERS: PCP Family Medicine; Visit Provider Nurse Practitioner Family | DX: L82.1 Other seborrheic keratosis (principal); L81.4 Other melanin hyperpigmentation; D18.01 Hemangioma of skin and subcutaneous tissue; D48.5 Neoplasm of uncertain behavior of skin; L57.0 Actinic keratosis; D35.1 Benign neoplasm of parathyroid gland | CPT/HCPCS: 11102; 17000; 99214 ==

== ENCOUNTER → 2024-05-06 09:53 | Outpatient (BNVA) | payer MEDICARE, SELFPAY | PROVIDERS: PCP Family Medicine; Visit Provider Nurse Practitioner | DX: J02.9 Acute pharyngitis, unspecified (principal) | CPT/HCPCS: 87880 ==

== ENCOUNTER → 2024-06-18 10:45 | Outpatient (BNVA) | payer MEDICARE, SELFPAY | PROVIDERS: PCP Family Medicine; Visit Provider Nurse Practitioner Family | DX: I47.10 Supraventricular tachycardia, unspecified (principal); I10 Essential (primary) hypertension; G25.0 Essential tremor; I71.20 Thoracic aortic aneurysm, without rupture, unspecified; G43.909 Migraine, unspecified, not intractable, without status migrainosus | CPT/HCPCS: 99214 ==

== ENCOUNTER → 2025-02-14 14:01 | Outpatient (BNVA) | payer MEDICARE, SELFPAY | PROVIDERS: PCP Family Medicine; Visit Provider Internal Medicine Cardiovascular Disease | DX: I71.20 Thoracic aortic aneurysm, without rupture, unspecified (principal); I10 Essential (primary) hypertension; I49.8 Other specified cardiac arrhythmias; I73.9 Peripheral vascular disease, unspecified; Z87.891 Personal history of nicotine dependence | CPT/HCPCS: 99214 ==

== ENCOUNTER → 2025-04-19 14:39 | Outpatient (BNVA) | payer MEDICARE, SELFPAY | PROVIDERS: PCP Family Medicine; Visit Provider Nurse Practitioner Family | DX: L57.8 Other skin changes due to chronic exposure to nonionizing radiation (principal); L82.1 Other seborrheic keratosis; L81.4 Other melanin hyperpigmentation; D18.01 Hemangioma of skin and subcutaneous tissue; Z08 Encounter for follow-up examination after completed treatment for malignant neoplasm; Z85.828 Personal history of other malignant neoplasm of skin; D48.5 Neoplasm of uncertain behavior of skin | CPT/HCPCS: 11102; 99213 ==

== ENCOUNTER → 2025-08-16 10:33 | Outpatient (BNVA) | payer MEDICARE, SELFPAY | PROVIDERS: PCP Family Medicine; Visit Provider Nurse Practitioner Family | DX: I71.20 Thoracic aortic aneurysm, without rupture, unspecified (principal); R07.9 Chest pain, unspecified; I10 Essential (primary) hypertension; Z87.891 Personal history of nicotine dependence | CPT/HCPCS: 99214 ==